=== PATIENT | female | born 1970 | race Caucasian/White ===

== ENCOUNTER 2016-11-09 16:37 | Emergency (ER) | payer MEDICAID ==
--- NOTE | 2016-11-09 17:18 | EDM.PDOC ---
[id number] Abdominal pain Time Seen by Provider: 11/09/16 17:00 Source of Information: Reports: Patient, RN notes reviewed History Limitations: Reports: No limitations - History of Present Illness INITIAL COMMENTS - FREE TEXT/NARRATIVE: 46 year old female, , presents to the ED with LUQ and RUQ abdominal pain since yesterday. The pain is more severe on the left when compared to the right. She rates the pain 6/10. She says the pain is constant and feels "gassy." She also feels bloated. She reports nausea but no vomiting. Last BM was today and "hard." She feels she could be constipated. She reports frequency with urination but no burning or urgency. She had flank pain last week but had no workup. She reports mild flank pain. She has generalized body aches and intermittent chills. She took Tylenol last evening for pain. She underwent IVF on 10/22/16 and has confirmed . She is 5 weeks gestation. She is seeing [facility] for her fertility treatment. She had a small amount of brown spotting when she wiped today. This seems to be improving. - Related Data Allergies/ADRs: Allergies Allergy/AdvReac Type Severity Reaction Status Date / Time Sulfa (Sulfonamide Allergy Airway Verified 11/09/16 16:48 Antibiotics) Tightness Home Meds: Home Meds Levothyroxine [Synthroid] 50 mcg PO DAILY 02/28/15 [History] Estradiol Patches. 11/09/16 [History] Pre-Luis Enrique Vitamins. 11/09/16 [History] Progesterone Injections. 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 Denies: Shortness of Breath, Cough Cardiovascular: Reports: No symptoms. Denies: Chest pain GI/Abdominal: Reports: Abdominal pain, Nausea. Denies: Constipation, Diarrhea, Vomiting : Reports: frequency. Denies: dysuria, flank pain, urgency ED EXAM - Physical Exam Exam: See Below Exam Limited By: No limitations General Appearance: alert, WD/WN, no apparent distress Respiratory/Chest: no respiratory distress, lungs clear, normal breath sounds Cardiovascular: regular rate, rhythm GI/Abdominal: normal bowel sounds, soft, no organomegaly, no distention, tender (Most significant tenderness to LUQ. Mild tenderness over lower abdomen). No: guarding, rigid, rebound Back Exam: normal inspection, full range of motion, CVA tenderness (L). No: CVA tenderness (R) Neurological: alert, oriented, normal cognition Course - Vital Signs Last Recorded V/S: Last Vital Signs Temp 97.7 F 11/09/16 16:49 Pulse Resp BP Pulse Ox - Orders/Labs/Meds Labs: Laboratory Tests 11/09/16 11/09/16 11/09/16 Range/Units 17:26 17:26 17:26 WBC 11.31 H (3.98-10.04) K/mm3 RBC 4.13 (3.98-5.22) M/mm3 Hgb 12.1 (11.2-15.7) gm/L Hct 36.5 (34.1-44.9) % MCV 88.4 (79.4-94.8) fl MCH 29.3 (25.6-32.2) pg MCHC 33.2 (32.2-35.5) g/dl RDW Std Deviation 47.9 H (36.4-46.3) fL Plt Count 239 (182-369) K/mm3 MPV 10.3 (9.4-12.3) fl Neut % (Auto) 76.1 H (34.0-71.1) % Lymph % (Auto) 15.3 L (19.3-51.7) % [place] % (Auto) 7.2 (4.7-12.5) % Eos % (Auto) 1.0 (0.7-5.8) Baso % (Auto) 0.2 (0.1-1.2) % Neut # (Auto) 8.62 H (1.56-6.13) K/mm3 Lymph # (Auto) 1.73 (1.18-3.74) K/mm3 [place] # (Auto) 0.81 H (0.24-0.36) K/mm3 Eos # (Auto) 0.11 (0.04-0.36) K/mm3 Baso # (Auto) 0.02 (0.01-0.08) K/mm3 Sodium 136 (136-145) mEq/L Potassium 3.7 (3.5-5.1) mEq/L Chloride 104 (98-107) mEq/L Carbon Dioxide 22 (21-32) mEq/L Anion Gap 13.7 (5-15) BUN 15 (7-18) mg/dL Creatinine 0.9 (0.55-1.02) mg/dL Est Cr Clr Drug Dosing 73.90 mL/min Estimated GFR (MDRD) > 60 (>60) mL/min BUN/Creatinine Ratio 16.7 (14-18) Glucose 146 H (74-106) mg/dL Calcium 8.3 L (8.5-10.1) mg/dL Total Bilirubin 0.1 L (0.2-1.0) mg/dL AST 12 L (15-37) U/L ALT 15 (14-59) U/L Alkaline Phosphatase 76 (46-116) U/L Total Protein 6.5 (6.4-8.2) g/dl Albumin 3.0 L (3.4-5.0) g/dl Globulin 3.5 gm/dL Albumin/Globulin Ratio 0.9 L (1-2) HCG, Quant 6034.0 mIU/mL Urine Color (Yellow) Urine Appearance (Clear) Urine pH (5.0-8.0) Ur Specific [place] (1.005-1.030) Urine Protein (Negative) Urine Glucose (UA) (Negative) Urine Ketones (Negative) Urine Occult Blood (Negative) Urine Nitrite (Negative) Urine Bilirubin (Negative) Urine Urobilinogen (0.2-1.0) Ur Leukocyte Esterase (Negative) Urine RBC (0-5) /hpf Urine WBC (0-5) /hpf Ur Epithelial Cells (0-5) /hpf Urine Bacteria (FEW) /hpf Urine Mucus (FEW) /hpf 11/09/16 Range/Units 18:07 WBC (3.98-10.04) K/mm3 RBC (3.98-5.22) M/mm3 Hgb (11.2-15.7) gm/L Hct (34.1-44.9) % MCV (79.4-94.8) fl MCH (25.6-32.2) pg MCHC (32.2-35.5) g/dl RDW Std Deviation (36.4-46.3) fL Plt Count (182-369) K/mm3 MPV (9.4-12.3) fl Neut % (Auto) (34.0-71.1) % Lymph % (Auto) (19.3-51.7) % [place] % (Auto) (4.7-12.5) % Eos % (Auto) (0.7-5.8) Baso % (Auto) (0.1-1.2) % Neut # (Auto) (1.56-6.13) K/mm3 Lymph # (Auto) (1.18-3.74) K/mm3 [place] # (Auto) (0.24-0.36) K/mm3 Eos # (Auto) (0.04-0.36) K/mm3 Baso # (Auto) (0.01-0.08) K/mm3 Sodium (136-145) mEq/L Potassium (3.5-5.1) mEq/L Chloride (98-107) mEq/L Carbon Dioxide (21-32) mEq/L Anion Gap (5-15) BUN (7-18) mg/dL Creatinine (0.55-1.02) mg/dL Est Cr Clr Drug Dosing mL/min Estimated GFR (MDRD) (>60) mL/min BUN/Creatinine Ratio (14-18) Glucose (74-106) mg/dL Calcium (8.5-10.1) mg/dL Total Bilirubin (0.2-1.0) mg/dL AST (15-37) U/L ALT (14-59) U/L Alkaline Phosphatase (46-116) U/L Total Protein (6.4-8.2) g/dl Albumin (3.4-5.0) g/dl Globulin gm/dL Albumin/Globulin Ratio (1-2) HCG, Quant mIU/mL Urine Color Yellow (Yellow) Urine Appearance Clear (Clear) Urine pH 6.0 (5.0-8.0) Ur Specific [place] 1.020 (1.005-1.030) Urine Protein Negative (Negative) Urine Glucose (UA) Negative (Negative) Urine Ketones Negative (Negative) Urine Occult Blood Trace-lysed H (Negative) Urine Nitrite Negative (Negative) Urine Bilirubin Negative (Negative) Urine Urobilinogen 0.2 (0.2-1.0) Ur Leukocyte Esterase Negative (Negative) Urine RBC 0-5 (0-5) /hpf Urine WBC 0-5 (0-5) /hpf Ur Epithelial Cells 0-5 (0-5) /hpf Urine Bacteria Few (FEW) /hpf Urine Mucus Few (FEW) /hpf Meds: Medications Discontinued Medications Generic Name Dose Route Start Last Admin Trade Name Pieter PRN Reason Stop Dose Admin Acetaminophen 975 mg 11/09/16 17:20 11/09/16 17:44 Tylenol PO 11/09/16 17:21 975 mg NOW ONE Administration - Re-Assessments/Exams Free Text/Narrative Re-Assessment/Exam: CBC reveals WBC of 11,000 and normal differentia. CMP is normal except for mildly elevated glucose. UA is negative for infection. Transvaginal ultrasound read by Dr. Charles, impression: 1. Intrauterine gestational sac with yolk sac. too early to see pole or heart activity 2. Nocomplicating process otherwise seen. If patient does not miscarry, recommend follow-up study in 11 days Acute causes of abdominal pain have been ruled out. Likely cause is constipation. Due to , x-rays were not ordered. Will treat her for constipation and have her f/u if not improved. Educated on return precautions. Discharge instructions as documented. Departure - Departure Time of Disposition: 19:43 Disposition: Home, Self-Care 01 Condition: good Clinical Impression: Abdominal pain of unknown etiology Instructions: Abdominal Pain, Adult, First Trimester of , [id number] , Abdominal Pain, Adult, [id number] Referrals: Astrid Negrete, [facility] [Primary Care Provider] - Forms: ED Department Discharge Additional Instructions: Use milk of magnesia for constipation Drink at least 80 oz of water per day Increase fiber in your diet with fruits, vegetables and whole grains Return to ER if your symptoms worsen Follow-up in clinic if not improced in 48 hours
[2016-11-09] MEDS ORDERED: Acetaminophen 325 MG Tab PO ONE (17:20)
--- NOTE | 2016-11-09 19:28 | US ---
First trimester obstetrical ultrasound: Multiple real-time images were obtained transvaginally. Dates: LMP: LMP given as 10/22/16, RODRICK 07/29/17, gestational age 2 weeks 4 days Current ultrasound: RODRICK 07/09/17, gestational age 5 weeks 3 days Single intrauterine gestation is seen. Small yolk sac is noted. too early to see pole or heart activity. Hypoechoic area is seen within the cervix which is felt to be incidental. Right and left ovaries are unremarkable. No free fluid is seen. Measurements: Gestational sac: 0.89 cm - 5 weeks 3 days Impression: 1. Intrauterine gestational sac with yolk sac. too early to see pole or heart activity. 2. No complicating process is otherwise seen. If patient does not miscarry, recommend follow-up study in 11 days. Diagnostic code #2
== END 2016-11-09 20:00 | disposition home or self-care (01) ==
LOC: JD.ED 16:37
DX: O99.89 Other specified diseases and conditions complicating pregnancy, childbirth and the puerperium (principal); R10.10 Upper abdominal pain, unspecified; Z88.2 Allergy status to sulfonamides; Z79.899 Other long term (current) drug therapy
CPT/HCPCS: 36415; 76817; 80053; 81001; 84702; 85025; 99284; A9270; 99282

== ENCOUNTER 2017-02-22 16:31 | Emergency (ER) | payer MEDICAID ==
[2017-02-22 16:50] VITALS: BP 143/83
--- NOTE | 2017-02-22 17:09 | EDM.PDOC ---
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 She is G7 L4 A2. Her director of family service center is Dr. Martin, whom she saw this past 02/17/2017 for an ultrasound, which demonstrated a SLIUP. The patient now presents with lower back pain this afternoon, along with vaginal pressure for the past approximately hour and 45 minutes, and rectal pressure for the past hour. She acknowledges that she is constipated. She denies dysuria, but states that she has been experiencing urinary frequency while . She has also experienced nausea during her entire . No recent fever. The patient denies vaginal bleeding. The patient's PCP is Yi Negrete. Bilateral Lower Back Pain Score (Numeric/FACES): 7 - Related Data Allergies Allergy/AdvReac Type Severity Reaction Status Date / Time Sulfa (Sulfonamide Allergy Airway Verified 02/22/17 16:45 Antibiotics) Tightness Home Meds: Home Meds Levothyroxine [Synthroid] 50 mcg PO DAILY 02/28/15 [History] Pre- Vitamins. 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 : 7 Para: 4 Endocrine/Metabolic History: Reports: Hypothyroidism - Past Surgical History HEENT Surgical History: Reports: Naso-Sinus Surgery (Rhinoplasty), Tonsillectomy Female Surgical History: Reports: Breast Implant, D&C (x 1), Kidney stone extraction, Other (See Below) (Cone biopsy.) Social & Family History - Tobacco Use Smoking Status *Q: Never Smoker Second Hand Smoke Exposure: No - Alcohol Use Alcohol Use History: No - Recreational Drug Use Recreational Drug Use: No - Living Situation & Occupation Living situation: Reports: , with Spouse, with Family (3 kids) Occupation: Unemployed ED ROS GENERAL - Review of Systems Review Of Systems: See Below Constitutional: Reports: No Symptoms HEENT: Reports: No Symptoms Respiratory: Reports: No Symptoms Cardiovascular: Reports: No Symptoms Endocrine: Reports: No Symptoms GI/Abdominal: Reports: No Symptoms : Reports: No Symptoms Musculoskeletal: Reports: No Symptoms Skin: Reports: No Symptoms Neurological: Reports: No Symptoms Psychiatric: Reports: No Symptoms Hematologic/Lymphatic: Reports: No Symptoms Immunologic: Reports: No Symptoms ED EXAM - Physical Exam Exam: See Below Exam Limited By: No Limitations General Appearance: Alert, WD/WN, No Apparent Distress Eye Exam: Bilateral Eye: Normal Inspection Ears: Normal External Exam, Hearing Grossly Normal Nose: Normal Inspection, No Blood Throat/Mouth: Normal Inspection, Normal Lips, Normal Voice, No Airway Compromise Head: Atraumatic, Normocephalic Neck: Normal Inspection, Full Range of Motion Respiratory/Chest: No Respiratory Distress, Lungs Clear, Normal Breath Sounds, No Accessory Muscle Use Cardiovascular: Normal Peripheral Pulses, Regular Rate, Rhythm, No Gallop, No JVD, No Murmur, No Rub GI/Abdominal Exam: Normal Bowel Sounds, Soft, Non-Tender, No Organomegaly, No Distention, No Abnormal Bruit, No Mass, Pelvis Stable Fundal Height In cm: 20 Rectal Exam: Deferred Heart Tones: Present Heart Tones per Min: 160 Back Exam: Normal Inspection, Full Range of Motion. No: CVA Tenderness (L), CVA Tenderness (R) Extremities: Normal Inspection, Normal Range of Motion, No Pedal Edema, Normal Capillary Refill Neurological: Alert, Oriented, Normal Cognition, Normal Gait, No Motor/Sensory Deficits Psychiatric: Normal Affect Skin Exam: Warm, Dry, Intact, Normal Color, No Rash Lymphatic: No Adenopathy Course - Vital Signs Last Recorded V/S: Last Vital Signs Temp 36.4 C 02/22/17 16:47 Pulse 66 02/22/17 16:47 Resp 20 02/22/17 16:47 BP 143/83 H 02/22/17 16:47 Pulse Ox 98 02/22/17 16:47 - Re-Assessments/Exams Free Text/Narrative Re-Assessment/Exam: 02/22/17 17:02 The patient states that she was expecting that Dr. Martin would be called in to the ED to check her cervix, and that an ultrasound would be done to check on the status of her fetus. Unfortunately, neither of those options are possible ( Dr. Bentley is senior international tax manager). I recommended to the patient that we check a urine sample to make sure that she does not have a UTI, however, the patient states that she does not feel comfortable having that done here in the ED, and that she would prefer to follow-up with Dr. Martin tomorrow. The patient's heart tones are 160 bpm. She has not had any vaginal bleeding. I reassured the patient that she is not having a miscarriage. Departure - Departure Time of Disposition: 17:04 Disposition: Home, Self-Care 01 Condition: Good Clinical Impression: Discomfort during - Discharge Information Referrals: Tiffanie Martin MD [Primary Care Provider] - Forms: ED Department Discharge Additional Instructions: You were seen in the emergency room for low back pain, along with vaginal and rectal pressure. A urinalysis to evaluate for a urinary tract infection was recommended, but declined. Your heart tones are 160 bpm, which is normal. Unfortunately, Dr. Martin is not available to come in to check your cervix, and an emergency ultrasound is is not indicated with your symptoms. The symptoms you described are MOST LIKELY due to round ligament pain, also known as discomfort of . We recommend you follow-up with Dr. Martin at the next available appointment. If any other problems, please do not hesitate to return to the ER.
== END 2017-02-22 17:20 | disposition home or self-care (01) ==
LOC: JD.ED 16:31
DX: O99.89 Other specified diseases and conditions complicating pregnancy, childbirth and the puerperium (principal); M54.5 Low back pain; Z88.2 Allergy status to sulfonamides; Z79.899 Other long term (current) drug therapy; E03.9 Hypothyroidism, unspecified
CPT/HCPCS: 99282; 99283

== ENCOUNTER 2017-07-03 07:25 | Inpatient (IN) | payer MEDICAID ==
[2017-07-03] MEDS ORDERED: Ampicillin 2 GM in Sodium Chloride 0.9% 100 ML IV ONE (08:08)
[2017-07-03] MEDS ORDERED: Sodium Chloride 0.9% 10 ML Syringe FLUSH PRN (08:08)
[2017-07-03] MEDS ORDERED: Oxytocin/Lactated Ringers 10 UNIT/1,000 ML BAG IV SCH ×2 (08:15)
[2017-07-03] MEDS: Lactated Ringers 1,000 ML IV SCH ×2 (08:40→13:16)
--- NOTE | 2017-07-03 09:14 | PCM.PREANE ---
Preanesthetic Assessment - Procedure Proposed Procedure: CLAUDIA - Anesthesia/Transfusion/Family Hx Anesthesia History: Prior Anesthesia Without Reaction Family History of Anesthesia Reaction: No Transfusion History: No Prior Transfusion(s) Intubation History: Unknown - Review of Systems General: No Symptoms Pulmonary: No Symptoms Cardiovascular: No Symptoms Gastrointestinal: Other (GERD) Neurological: Other (patient does have a sacral bulging disc that causes sciatic discomfort to the point where she has received spidural steroid injections. Patient denies any current problems with this at this time. ) Other: Reports: Diabetes (gestational ), Thyroid Problems (hypothyroidism ) - Physical Assessment NPO Status Date: 07/03/17 NPO Status Time: 08:30 Pulse: 65 Blood Pressure: 121/67 Vital Signs: Last Vital Signs Temp 36.2 C 07/03/17 08:09 Pulse 65 07/03/17 08:09 Resp BP 121/67 07/03/17 08:00 Pulse Ox Height: 1.68 m Weight: 102.058 kg ASA Class: 2 Mental Status: Alert & Oriented x3 Airway Class: Mallampati = 2 Dentition: Reports: Normal Dentition Thyro-Mental Finger Breadths: 3 Mouth Opening Finger Breadths: 3 ROM/Head Extension: Full Lungs: Clear to Auscultation, Normal Respiratory Effort Cardiovascular: Regular Rate, Regular Rhythm - Lab Values: Laboratory Last Values WBC 7.12 K/mm3 (3.98-10.04) 07/03/17 08:40 RBC 4.35 M/mm3 (3.98-5.22) 07/03/17 08:40 Hgb 13.0 gm/L (11.2-15.7) 07/03/17 08:40 Hct 38.1 % (34.1-44.9) 07/03/17 08:40 MCV 87.6 fl (79.4-94.8) 07/03/17 08:40 MCH 29.9 pg (25.6-32.2) 07/03/17 08:40 MCHC 34.1 g/dl (32.2-35.5) 07/03/17 08:40 RDW Std Deviation 49.8 fL (36.4-46.3) H 07/03/17 08:40 Plt Count 134 K/mm3 (182-369) L 07/03/17 08:40 MPV 11.7 fl (9.4-12.3) 07/03/17 08:40 - Allergies Allergies/Adverse Reactions: Allergies Allergy/AdvReac Type Severity Reaction Status Date / Time ipratropium [From Atrovent] Allergy Other Verified 07/03/17 07:33 Sulfa (Sulfonamide Allergy Airway Verified 06/19/17 14:33 Antibiotics) Tightness - Blood Blood Available: No - Anesthesia Plan Pre-Op Medication Ordered: None - Acknowledgements Anesthesia Type Planned: Epidural Pt an Appropriate Candidate for the Planned Anesthesia: Yes Alternatives and Risks of Anesthesia Discussed w Pt/Guardian: Yes Pt/Guardian Understands and Agrees with Anesthesia Plan: Yes PreAnesthesia Questionnaire - Past Health History Medical/Surgical History: Denies Medical/Surgical History Genitourinary History: Reports: Renal Calculus 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 Endocrine/Metabolic History: Reports: Hypothyroidism - Past Surgical History HEENT Surgical History: Reports: Naso-Sinus Surgery (Rhinoplasty), Tonsillectomy Female Surgical History: Reports: Breast Implant, D&C (x 1), Kidney stone extraction, Other (See Below) (Cone biopsy.) - SUBSTANCE USE Smoking Status *Q: Never Smoker Second Hand Smoke Exposure: No Recreational Drug Use History: No - HOME MEDS Home Medications: Home Meds Levothyroxine [Synthroid] 50 mcg PO DAILY 02/28/15 [History] Aspirin 81 mg PO BRK 02/22/17 [History] Ranitidine [Zantac] 150 mg PO DAILY 06/19/17 [History] Cyclobenzaprine [Flexeril] 5 - 10 mg PO TID PRN 07/03/17 [History] Fluconazole [Diflucan] 150 mg PO ASDIRECTED 07/03/17 [History] Insulin Aspart [NovoLOG] 2 - 8 units SUBCUT TIDMEALS 07/03/17 [History] Insulin Detemir [Levemir Flextouch] 27 units SUBCUT BEDTIME 07/03/17 [History] - CURRENT (IN HOUSE) MEDS Current Meds: Current Medications Ampicillin Sodium 1 gm/ Sodium (Chloride) 100 mls @ 200 mls/hr IV Q4H ISAEL Lactated Ringer's (Ringers, Lactated) 1,000 mls @ 100 mls/hr IV ASDIRECTED ISAEL Last Admin: 12/22/17 08:40 Dose: 100 mls/hr Oxytocin/Lactated Ringer's (Pitocin In Lr 10 Units/1,000 Ml) 10 unit in 1,000 mls @ 100 mls/hr IV .CONTINUOUS ISAEL Oxytocin/Lactated Ringer's (Pitocin In Lr 10 Units/1,000 Ml) 10 unit in 1,000 mls @ 12 mls/hr IV TITRATE ISAEL; 2 MUNITS/MIN PRN Reason: Protocol Last Admin: 07/03/17 08:41 Dose: 2 munits/min, 12 mls/hr Sodium Chloride (Saline Flush) 10 ml FLUSH ASDIRECTED PRN PRN Reason: Keep Vein Open Discontinued Medications Ampicillin Sodium 2 gm/ Sodium (Chloride) 100 mls @ 200 mls/hr IV ONETIME ONE Stop: 07/03/17 08:37 Last Admin: 07/03/17 08:41 Dose: 200 mls/hr
[2017-07-03] MEDS ORDERED: ePHEDrine 50 MG/ML SDV IVPUSH PRN (09:30)
[2017-07-03] MEDS ORDERED: diphenhydrAMINE 50 MG/ML SDV IVPUSH PRN (09:30)
[2017-07-03] MEDS ORDERED: fentaNYL 100 MCG/2 ML SDV EPIDUR PRN (09:30)
[2017-07-03] MEDS ORDERED: Ondansetron 4 MG/2 ML SDV IVPUSH PRN (09:30)
[2017-07-03] MEDS ORDERED: Bupivacaine/fentaNYL/NS 100 ML Bag EPIDUR SCH (09:30)
[2017-07-03] MEDS ORDERED: Ampicillin 1 GM in Sodium Chloride 0.9% 100 ML IV SCH (12:00)
[2017-07-03] MEDS ORDERED: Methylergonovine 0.2 MG/1 ML Amp IM ONE (15:00)
--- NOTE | 2017-07-03 15:21 | PCM.LDHP ---
L&D History of Present Illness - General Date of Service: 07/03/17 Admit Problem/Dx: Admission Diagnosis/Problem Admission Diagnosis/Problem care Source of Information: Patient - History of Present Illness Introduction:: 47 year old at 39w0 here for induction of labor for poorly controlled gestational diabetes and ama. PNC complicated by AMA (donor egg IVF), gbs positive, and insulin controlled gestational diabetes Pain Score: 8 - Related Data Allergies/Adverse Reactions: Allergies Allergy/AdvReac Type Severity Reaction Status Date / Time ipratropium [From Atrovent] Allergy Other Verified 07/03/17 07:33 Sulfa (Sulfonamide Allergy Airway Verified 06/19/17 14:33 Antibiotics) Tightness Home Medications: Home Meds Levothyroxine [Synthroid] 50 mcg PO DAILY 02/28/15 [History] Aspirin 81 mg PO BRK 02/22/17 [History] Ranitidine [Zantac] 150 mg PO DAILY 06/19/17 [History] Cyclobenzaprine [Flexeril] 5 - 10 mg PO TID PRN 07/03/17 [History] Fluconazole [Diflucan] 150 mg PO ASDIRECTED 07/03/17 [History] Insulin Aspart [NovoLOG] 2 - 8 units SUBCUT TIDMEALS 07/03/17 [History] Insulin Detemir [Levemir Flextouch] 27 units SUBCUT BEDTIME 07/03/17 [History] Past Medical History - Past Health History Medical/Surgical History: Denies Medical/Surgical History Genitourinary History: Reports: Renal Calculus D[employer]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: Reports: Spontaneous Musculoskeletal History: Reports: Other (See Below) Other Musculoskeletal History: plantar fascitis Psychiatric History: Reports: Anxiety Endocrine/Metabolic History: Reports: Hypothyroidism - Past Surgical History HEENT Surgical History: Reports: Naso-Sinus Surgery (Rhinoplasty), Tonsillectomy Female Surgical History: Reports: Breast Implant, D&C (x 1), Kidney stone extraction, Other (See Below) (Cone biopsy.) Social & Family History - Family History Cardiac: Reports: Hypertension Respiratory: Reports: COPD Psychiatric: Reports: ADHD, Anxiety Immunologic: Reports: HIV - Tobacco Use Smoking Status *Q: Never Smoker Second Hand Smoke Exposure: No - Caffeine Use Caffeine Use: Reports: None - Recreational Drug Use Recreational Drug Use: No - Living Situation & Occupation Living situation: Reports: , with Spouse, with Family (3 kids) Occupation: Unemployed H&P Review of Systems - Review of Systems: Review Of Systems: See Below General: Reports: No Symptoms HEENT: Reports: No Symptoms Pulmonary: Reports: No Symptoms Cardiovascular: Reports: No Symptoms Gastrointestinal: Reports: No Symptoms Genitourinary: Reports: No Symptoms Musculoskeletal: Reports: No Symptoms Skin: Reports: No Symptoms Psychiatric: Reports: No Symptoms Neurological: Reports: No Symptoms Hematologic/Lymphatic: Reports: No Symptoms Immunologic: Reports: No Symptoms L&D Exam - Exam Exam: See Below - Vital Signs Vital Signs: Last Vital Signs Temp 36.2 C 07/03/17 08:09 Pulse 53 L 07/03/17 10:23 Resp BP 146/76 H 07/03/17 10:23 Pulse Ox Weight: 102.058 kg - OB Specific Contraction Intensity: Mild Movement: Active Heart Tones per Min: 140 Heart Rate (FHR) Variability: Moderate (6-25 bmp) Presentation: Vertex - Robledo Score Robledo Score Cervix Position: Posterior Robledo Score Consistency: Soft Robledo Score Effacement: >80% Robledo Score Dilation: 3-4 cm Robledo Score 's Station: -3 Robledo Score Total: 7 - Exam General: Alert, Oriented HEENT: PERRLA, Conjunctiva Clear, EACs Clear, EOMI, Hearing Intact, Mucosa Moist & Bryce, Nares Patent, Normal Nasal Septum, Posterior Pharynx Clear, TMs Clear Neck: Supple, Trachea Midline Lungs: Clear to Auscultation, Normal Respiratory Effort Cardiovascular: Regular Rate, Regular Rhythm GI/Abdominal Exam: Normal Bowel Sounds, Soft, Non-Tender, No Organomegaly, No Distention, No Abnormal Bruit, No Mass, Pelvis Stable Genitourinary: Normal external exam, Normal bimanual exam, Normal speculum exam Back Exam: Normal Inspection, Full Range of Motion Extremities: Normal Inspection, Normal Range of Motion, Non-Tender, No Pedal Edema, Normal Capillary Refill Skin: Warm, Dry, Intact Neurological: Cranial Nerves Intact, Reflexes Equal Bilateral Psychiatric: Alert, Normal Affect, Normal Mood - Patient Data Lab Results Last 24 hrs: Laboratory Results - last 24 hr 07/03/17 07/03/17 07/03/17 Range/Units 08:40 08:40 09:10 WBC 7.12 (3.98-10.04) K/mm3 RBC 4.35 (3.98-5.22) M/mm3 Hgb 13.0 (11.2-15.7) gm/L Hct 38.1 (34.1-44.9) % MCV 87.6 (79.4-94.8) fl MCH 29.9 (25.6-32.2) pg MCHC 34.1 (32.2-35.5) g/dl RDW Std Deviation 49.8 H (36.4-46.3) fL Plt Count 134 L (182-369) K/mm3 MPV 11.7 (9.4-12.3) fl POC Glucose 75 (70-105) mg/dL Blood Type A POSITIVE Gel Antibody Screen Negative 07/03/17 07/03/17 07/03/17 Range/Units 10:55 13:00 14:53 WBC (3.98-10.04) K/mm3 RBC (3.98-5.22) M/mm3 Hgb (11.2-15.7) gm/L Hct (34.1-44.9) % MCV (79.4-94.8) fl MCH (25.6-32.2) pg MCHC (32.2-35.5) g/dl RDW Std Deviation (36.4-46.3) fL Plt Count (182-369) K/mm3 MPV (9.4-12.3) fl POC Glucose 59 L 122 H 83 (70-105) mg/dL Blood Type Gel Antibody Screen Result Diagrams: 07/03/17 08:40 Problem List Initiated/Reviewed/Updated: Yes Orders Last 24hrs: Active Orders 24 hr Category Date Time Status Patient Status Manage Transfer [TRANSFER] Routine ADT 07/03/17 15:14 Ordered Activity as Tolerated [RC] PFP Care 07/03/17 08:09 Active Blood Glucose Check, Bedside [RC] Q2H Care 07/03/17 09:06 Active Communication Order [RC] ASDIRECTED Care 07/03/17 08:09 Active Heart Tones [RC] ASDIRECTED Care 07/03/17 08:09 Active Notify Provider [RC] PFP Care 07/03/17 08:09 Active Notify Provider [RC] PRN Care 07/03/17 08:09 Active Peripheral IV Care [RC] Q4HR Care 07/03/17 08:09 Active Vital Signs [RC] PER UNIT ROUTINE Care 07/03/17 08:09 Active Regular Diet [DIET] Diet 07/03/17 Lunch Active PATIENT RETYPE [BBK] Stat Lab 07/03/17 08:40 Results TYPE AND SCREEN [BBK] Stat Lab 07/03/17 08:40 Results Ampicillin 1 gm Med 07/03/17 12:00 Active Sodium Chloride 0.9% [Normal Saline] 100 ml IV Q4H Bupivacaine/fentaNYL/NS [fentaNYL/Bupivacaine/NS 2 MCG- Med 07/03/17 09:30 Active 0.125% 100 ML] 100 ml EPIDUR ASDIRECTED Lactated Ringers [Ringers, Lactated] 1,000 ml Med 07/03/17 08:15 Active IV ASDIRECTED Ondansetron [Zofran] Med 07/03/17 09:30 Active 4 mg IVPUSH ONETIME PRN Oxytocin/Lactated Ringers [Pitocin in LR 10 Units/1,000 Med 07/03/17 08:15 Active ML] 10 unit in 1,000 ml IV .CONTINUOUS Oxytocin/Lactated Ringers [Pitocin in LR 10 Units/1,000 Med 07/03/17 08:15 Active ML] 10 unit in 1,000 ml IV TITRATE Sodium Chloride 0.9% [Saline Flush] Med 07/03/17 08:08 Active 10 ml FLUSH ASDIRECTED PRN diphenhydrAMINE [Benadryl] Med 07/03/17 09:30 Active 25 mg IVPUSH Q6H PRN ePHEDrine [ePHEDrine Sulfate] Med 07/03/17 09:30 Active 5 mg IVPUSH ASDIRECTED PRN fentaNYL [Sublimaze] Med 07/03/17 09:30 Active 100 mcg EPIDUR Q3H PRN Electronic Heart Tones Ext w TOCO [WOMSER] Oth 07/03/17 08:09 Ordered Routine Electronic Heart Tones Internal [WOMSER] Per Unit Oth 07/03/17 08:09 Ordered Routine Peripheral IV Insertion Adult [OM.PC] Routine Oth 07/03/17 08:09 Ordered Resuscitation Status Routine Resus Stat 07/03/17 08:08 Ordered Medication Orders Diphenhydramine HCl (Benadryl) 25 mg IVPUSH Q6H PRN PRN Reason: Pruritis Ephedrine Sulfate (Ephedrine Sulfate) 5 mg IVPUSH ASDIRECTED PRN PRN Reason: Hypotension Fentanyl (Sublimaze) 100 mcg EPIDUR Q3H PRN PRN Reason: Pain Last Admin: 07/03/17 12:40 Dose: 100 mcg Fentanyl/Bupivacaine HCl (Fentanyl/Bupivacaine/Ns 2 Mcg-0.125% 100 Ml) 100 ml EPIDUR ASDIRECTED ISAEL Last Admin: 07/03/17 12:41 Dose: 100 ml Ampicillin Sodium 1 gm/ Sodium (Chloride) 100 mls @ 200 mls/hr IV Q4H ISAEL Last Admin: 07/03/17 12:09 Dose: 200 mls/hr Lactated Ringer's (Ringers, Lactated) 1,000 mls @ 100 mls/hr IV ASDIRECTED ISAEL Last Admin: 07/03/17 13:16 Dose: 100 mls/hr Infusion: 07/03/17 12:50 Dose: 999 mls/hr Admin: 07/03/17 08:40 Dose: 100 mls/hr Oxytocin/Lactated Ringer's (Pitocin In Lr 10 Units/1,000 Ml) 10 unit in 1,000 mls @ 100 mls/hr IV .CONTINUOUS ISAEL Oxytocin/Lactated Ringer's (Pitocin In Lr 10 Units/1,000 Ml) 10 unit in 1,000 mls @ 12 mls/hr IV TITRATE ISAEL; 2 MUNITS/MIN PRN Reason: Protocol Last Titration: 07/03/17 13:21 Dose: 10 munits/min, 60 mls/hr Titration: 07/03/17 11:02 Dose: 8 munits/min, 48 mls/hr Titration: 07/03/17 10:27 Dose: 6 munits/min, 36 mls/hr Titration: 07/03/17 09:52 Dose: 4 munits/min, 24 mls/hr Admin: 07/03/17 08:41 Dose: 2 munits/min, 12 mls/hr Ondansetron HCl (Zofran) 4 mg IVPUSH ONETIME PRN PRN Reason: Nausea/Vomiting Sodium Chloride (Saline Flush) 10 ml FLUSH ASDIRECTED PRN PRN Reason: Keep Vein Open Assessment/Plan Comment:: Admit Pitocin AROM later today Breakfast - patient took morning levimir. Sugars q2 and insulin gtt if needed but suspect with some food intake will be controlled with this
[2017-07-03] MEDS ORDERED: Benzocaine/Menthol 20%-0.5% Spray 56 GM Canister TOP PRN (15:58)
[2017-07-03] MEDS ORDERED: Lanolin 100% Cream 7 GM Tube TOP PRN (15:58)
[2017-07-03] MEDS ORDERED: Ibuprofen 600 MG Tab PO PRN (15:58)
[2017-07-03] MEDS ORDERED: Methylergonovine 0.2 MG/1 ML Amp IM PRN (15:58)
[2017-07-03] MEDS ORDERED: Witch Hazel Medicated Pads 100/Jar TOP PRN (15:58)
[2017-07-03] MEDS ORDERED: Docusate Sodium 100 MG Cap PO PRN (21:30)
[2017-07-03] MEDS ORDERED: Bupivacaine 0.25% 10 ML SDV ONE (22:22)
[2017-07-04 08:40] VITALS: BP 128/77
--- NOTE | 2017-07-04 11:01 | PCM.SN ---
- Free Text/Narrative Note: Post Progress Note PPD # 1 Subjective: Doing well overall. Ambulating without difficulty. Lochia minimal. Voiding without difficulty. Tolerating regular diet. Pain controlled with oral medications. Breast and bottle feeding with minimal difficulty. Objective: Vitals: Vital Signs - 24 hr 07/03/17 07/03/17 07/03/17 11:53 12:09 12:32 Temperature Pulse, 56 L 64 72 Peripheral Respiratory Rate Blood Pressure 143/78 H O2 Sat by Pulse 99 Oximetry 07/03/17 07/03/17 07/03/17 13:01 13:31 14:01 Temperature Pulse, 67 67 64 Peripheral Respiratory Rate Blood Pressure 130/54 L 142/70 H 136/72 O2 Sat by Pulse Oximetry 07/03/17 07/03/17 07/03/17 14:31 15:00 15:30 Temperature Pulse, 66 68 117 H Peripheral Respiratory Rate Blood Pressure 130/78 130/86 125/97 H O2 Sat by Pulse Oximetry 07/03/17 07/03/17 07/03/17 16:01 16:31 17:01 Temperature Pulse, 75 67 66 Peripheral Respiratory Rate Blood Pressure 129/106 H 133/80 132/64 O2 Sat by Pulse Oximetry 07/03/17 07/03/17 07/03/17 17:31 18:01 18:31 Temperature Pulse, 77 72 70 Peripheral Respiratory Rate Blood Pressure 133/57 L 131/58 L 135/77 O2 Sat by Pulse Oximetry 07/03/17 07/04/17 07/04/17 20:24 03:42 08:17 Temperature 37.4 C 36.4 C 36.4 C Pulse, 69 63 63 Peripheral Respiratory 14 14 Rate Blood Pressure 119/92 H 132/64 128/77 O2 Sat by Pulse 98 98 96 Oximetry Physical Exam General: Alert and oriented, no acute distress Lungs: Clear to auscultation bilaterally Heart: Regular rate and rhythm Abdomen: Soft, minimal appropriate tenderness, non-distended, fundus midline, nontender, and below the umbilicus Extremities: No edema Laboratory Results - last 24 hr 07/03/17 07/03/17 07/03/17 Range/Units 13:00 14:53 19:16 POC Glucose 122 H 83 129 H (70-105) mg/dL 07/04/17 Range/Units 06:14 POC Glucose 82 (70-105) mg/dL ASSESSMENT: 47-year-old female G 7 P 5025 s/p normal vaginal delivery PPD #1, complicated by insulin-controlled gestational diabetes, advanced maternal age, donor egg , GBS positive PLAN: Doing well Breast and bottle feeding with minimal difficulty. Assist as needed Lochia minimal. Continue to monitor for appropriate lochia. Continue routine care Patient previously was insulin controlled gestational diabetic. Her sugars have been good while in the hospital after delivery without use of any insulin. Patient should continue to check blood sugars after discharge. Patient to have a 2 hour glucose tolerance test at her 6 week appointment. Patient is GBS positive and received 2 doses of ampicillin prior to delivery. Anticipate discharge home today Brian Moreira MD 11:03 AM 07/04/2017
--- NOTE | 2017-07-04 11:17 | PCM.DCSUM1 ---
Discharge Summary - Hospital Course Free Text/Narrative:: 47-year-old 0-4 at 39 weeks gestational age admitted for induction of labor. care was with Dr. Martin complicated by advanced maternal age with egg donor, insulin controlled gestational diabetes, GBS positive and hypothyroidism. She had an uncomplicated delivery on 07/03/2017 of a male weighing 3283 g (7 lbs. 7 oz.) Apgars were 8 and 9. There were no significant complications with the delivery. HPI Initial Comments: 47-year-old 0-4 at 39 weeks gestational age admitted for induction of labor. care was with Dr. Martin complicated by advanced maternal age with egg donor, insulin controlled gestational diabetes, GBS positive and hypothyroidism. She had an uncomplicated delivery on 07/03/2017 of a male infant weighing 3283 g (7 lbs. 7 oz.) Apgars were 8 and 9. There were no significant complications with the delivery. Brief History: 47-year-old 0-4 at 39 weeks gestational age admitted for induction of labor. care was with Dr. Martin complicated by advanced maternal age with egg donor, insulin controlled gestational diabetes, GBS positive and hypothyroidism. She had an uncomplicated delivery on 07/03/2017 of a male weighing 3283 g (7 lbs. 7 oz.) Apgars were 8 and 9. There were no significant complications with the delivery. - Discharge Data Discharge Date: 07/04/17 Discharge Disposition: Home, Self-Care 01 Condition: Good - Discharge Diagnosis/Problem(s) (1) (normal spontaneous vaginal delivery) SNOMED Code(s): 86911389 ICD Code: O80 - ENCOUNTER FOR FULL-TERM UNCOMPLICATED DELIVERY Status: Acute Current Visit: Yes (2) 39 weeks gestation of SNOMED Code(s): 17855566 ICD Code: Z3A.39 - 39 WEEKS GESTATION OF Status: Acute Current Visit: Yes (3) AMA (advanced maternal age) multigravida 35+ SNOMED Code(s): 521284914 ICD Code: O09.529 - SUPERVISION OF ELDERLY MULTIGRAVIDA, UNSPECIFIED TRIMESTER Status: Acute Current Visit: Yes (4) Egg donor SNOMED Code(s): 471379990 ICD Code: Z52.819 - EGG (OOCYTE) DONOR, UNSPECIFIED Status: Acute Current Visit: Yes (5) GBS (group B Streptococcus carrier), +RV culture, currently SNOMED Code(s): 3830040517004, 2621138923420 ICD Code: O99.820 - STREPTOCOCCUS B CARRIER STATE COMPLICATING Status: Acute Current Visit: Yes (6) Gestational diabetes SNOMED Code(s): 16750116 ICD Code: O24.419 - GESTATIONAL DIABETES MELLITUS IN , UNSP CONTROL Status: Acute Current Visit: Yes Qualifiers: Gestational diabetes mellitus control: insulin-controlled (7) Hypothyroidism affecting SNOMED Code(s): 834911217 ICD Code: O99.280 - ENDO, NUTRITIONAL AND METAB DISEASES COMP PREG, UNSP TRI ; E03.9 - HYPOTHYROIDISM, UNSPECIFIED Status: Acute Current Visit: Yes - Patient Summary/Data Complications: None Consults: None Hospital Course: 47-year-old 0-4 at 39 weeks gestational age admitted for induction of labor. care was with Dr. Martin complicated by advanced maternal age with egg donor, insulin controlled gestational diabetes, GBS positive and hypothyroidism. She had an uncomplicated delivery on 07/03/2017 of a male weighing 3283 g (7 lbs. 7 oz.) Apgars were 8 and 9. There were no significant complications with the delivery. On day #1 she was meeting all milestones. She was ambulating without difficulty. She was tolerating regular diet without any nausea. She was voiding without difficulty. She was breast and bottlefeeding without difficulty. She received 2 doses of ampicillin prior to delivery for GBS positive status. She had minimal lochia. She desired to be discharged home in the afternoon of day #1. She will follow up with Dr. Lanza or Dr. Martin in 6 weeks or earlier as needed. She'll continue to monitor her blood glucose levels at home and bring these values with her to her appointment. She should have a 2 hour glucose tolerance test at her 6 week visit to check for possible type 2 diabetes. - Patient Instructions Diet: Regular Diet as Tolerated Activity: As Tolerated Activity, Other: Nothing in the vagina for 6 weeks Driving: May Drive Today Showering/Bathing: May Shower, No Tub Bathing/Swimming (For 6 weeks) Notify Provider of: Fever, Increased Pain, Swelling and Redness, Drainage, Nausea and/or Vomiting Other/Special Instructions: Patient to have 2 hour glucose tolerance test done at approximate 6 weeks . - Discharge Plan Home Medications: Home Meds Levothyroxine [Synthroid] 50 mcg PO DAILY 02/28/15 [History] Aspirin 81 mg PO BRK 02/22/17 [History] Ranitidine [Zantac] 150 mg PO DAILY 06/19/17 [History] Cyclobenzaprine [Flexeril] 5 - 10 mg PO TID PRN 07/03/17 [History] Fluconazole [Diflucan] 150 mg PO ASDIRECTED 07/03/17 [History] Docusate Sodium [Colace] 100 mg PO BID PRN cap 07/04/17 [Rx] Ibuprofen [IJD: Ibuprofen] 600 mg PO Q6H PRN tablet 07/04/17 [Rx] Lanolin [Lansinoh HPA] 1 applic TOP ASDIRECTED PRN tube 07/04/17 [Rx] Witch Christiana [Tucks] 1 pad TOP ASDIRECTED PRN pad 07/04/17 [Rx] Patient Handouts: Home Care Instructions for Mom, Vaginal Delivery, Care After , How to Take a Sitz Bath, Gestational Diabetes Mellitus Referrals: Gerda Lanza MD [Primary Care Provider] - (Follow-up in 6 weeks for your routine visit.) - Discharge Summary/Plan Comment DC Time >30 min.: No - Patient Data Vitals - Most Recent: Last Vital Signs Temp 36.4 C 07/04/17 08:17 Pulse 63 07/04/17 08:17 Resp 14 07/04/17 03:42 BP 128/77 07/04/17 08:17 Pulse Ox 96 07/04/17 08:17 Weight - Most Recent: 102.058 kg I&O - Last 24 hours: Intake & Output 07/03/17 07/04/17 07/04/17 22:59 06:59 14:59 Intake Total 480 Balance 480 Lab Results - Last 24 hrs: Laboratory Results - last 24 hr 07/03/17 07/03/17 07/03/17 Range/Units 13:00 14:53 19:16 POC Glucose 122 H 83 129 H (70-105) mg/dL 07/04/17 Range/Units 06:14 POC Glucose 82 (70-105) mg/dL Med Orders - Current: Current Medications Benzocaine/Menthol (Dermoplast Pain Relief [place]) 0 gm TOP ASDIRECTED PRN PRN Reason: Perineal Comfort Measure Last Admin: 07/04/17 09:40 Dose: 1 applic Docusate Sodium (Colace) 100 mg PO BID PRN PRN Reason: Constipation Emollient Ointment (Lansinoh Hpa) 0 gm TOP ASDIRECTED PRN PRN Reason: Sore Nipples Ibuprofen (Motrin) 600 mg PO Q6H PRN PRN Reason: Mild pain or fever Last Admin: 07/03/17 23:49 Dose: 600 mg Methylergonovine Maleate (Methergine) 0.2 mg IM ONETIME PRN PRN Reason: Excessive Vaginal Bleeding Witch Christiana (Tucks) 1 pad TOP ASDIRECTED PRN PRN Reason: Hemorrhoid pain Last Admin: 07/04/17 09:40 Dose: 1 pad Discontinued Medications Diphenhydramine HCl (Benadryl) 25 mg IVPUSH Q6H PRN PRN Reason: Pruritis Ephedrine Sulfate (Ephedrine Sulfate) 5 mg IVPUSH ASDIRECTED PRN PRN Reason: Hypotension Fentanyl (Sublimaze) 100 mcg EPIDUR Q3H PRN PRN Reason: Pain Last Admin: 07/03/17 12:40 Dose: 100 mcg Fentanyl/Bupivacaine HCl (Fentanyl/Bupivacaine/Ns 2 Mcg-0.125% 100 Ml) 100 ml EPIDUR ASDIRECTED [facility] Last Admin: 07/03/17 12:41 Dose: 100 ml Ampicillin Sodium 2 gm/ Sodium (Chloride) 100 mls @ 200 mls/hr IV ONETIME ONE Stop: 07/03/17 08:37 Last Admin: 07/03/17 08:41 Dose: 200 mls/hr Ampicillin Sodium 1 gm/ Sodium (Chloride) 100 mls @ 200 mls/hr IV Q4H [facility] Last Admin: 07/03/17 12:09 Dose: 200 mls/hr Lactated Ringer's (Ringers, Lactated) 1,000 mls @ 100 mls/hr IV ASDIRECTED [facility] Last Admin: 07/03/17 13:16 Dose: 100 mls/hr Oxytocin/Lactated Ringer's (Pitocin In Lr 10 Units/1,000 Ml) 10 unit in 1,000 mls @ 100 mls/hr IV .CONTINUOUS ISAEL Oxytocin/Lactated Ringer's (Pitocin In Lr 10 Units/1,000 Ml) 10 unit in 1,000 mls @ 12 mls/hr IV TITRATE ISAEL; 2 MUNITS/MIN PRN Reason: Protocol Last Titration: 07/03/17 13:21 Dose: 10 munits/min, 60 mls/hr Methylergonovine Maleate (Methergine) 0.2 mg IM ONETIME ONE Stop: 07/03/17 15:01 Last Admin: 07/03/17 15:56 Dose: 0.2 mg Ondansetron HCl (Zofran) 4 mg IVPUSH ONETIME PRN PRN Reason: Nausea/Vomiting Sodium Chloride (Saline Flush) 10 ml FLUSH ASDIRECTED PRN PRN Reason: Keep Vein Open *Q Meaningful Use (DIS) - VTE *Q VTE Criteria *Q: - Stroke *Q Stroke Criteria *Q: - AMI *Q AMI Criteria *Q:
--- NOTE | 2017-07-06 08:15 | PCM48HPAN ---
Post Anesthesia Note - EVALUATION WITHIN 48HRS OF ANESTHETIC Vital Signs in Normal Range: Yes Patient Participated in Evaluation: Yes Respiratory Function Stable: Yes Airway Patent: Yes Cardiovascular Function Stable: Yes Hydration Status Stable: Yes Pain Control Satisfactory: Yes Nausea and Vomiting Control Satisfactory: Yes Mental Status Recovered: Yes
== END 2017-07-04 16:27 | disposition home or self-care (01) | DRG 775 ==
LOC: JD.OB 07:25 → OBSVTOIN 14:57 → JD.OB 14:57
PROVIDERS: ADMIT Obstetrics & Gynecology; ATTEND Obstetrics & Gynecology
PROC: 10E0XZZ Delivery of Products of Conception, External Approach (ICD-10-PCS; principal; 2017-07-03)
PROC: 3E0P3VZ Introduction of Hormone into Female Reproductive, Percutaneous Approach (ICD-10-PCS; 2017-07-03)
PROC: 10907ZC Drainage of Amniotic Fluid, Therapeutic from Products of Conception, Via Natural or Artificial Opening (ICD-10-PCS; 2017-07-03)
PROC: 0HQ9XZZ Repair Perineum Skin, External Approach (ICD-10-PCS; 2017-07-03)
PROC: 00HU33Z Insertion of Infusion Device into Spinal Canal, Percutaneous Approach (ICD-10-PCS; 2017-07-03)
PROC: 3E0R3BZ Introduction of Anesthetic Agent into Spinal Canal, Percutaneous Approach (ICD-10-PCS; 2017-07-03)
DX: O24.424 Gestational diabetes mellitus in childbirth, insulin controlled (principal); Z37.0 Single live birth; Z3A.39 39 weeks gestation of pregnancy; O99.824 Streptococcus B carrier state complicating childbirth; O99.284 Endocrine, nutritional and metabolic diseases complicating childbirth; E03.9 Hypothyroidism, unspecified; O70.0 First degree perineal laceration during delivery; O69.2XX0 Labor and delivery complicated by other cord entanglement, with compression, not applicable or unspecified
CPT/HCPCS: 36415; 51701; 59300; 59409; 82962; 85027; 86850; 86900; 86901; A9270-GY; J0290; J2210; J2590; J3010; J7030; J7120

== ENCOUNTER 2019-06-16 13:29 | Inpatient (IN) | payer MEDICAID ==
[~2019-06-16 13:29] MED LIST: Bupivacaine 0.25% 10 ML SDV ONE
--- NOTE | 2019-06-16 16:58 | PCM.LDHP ---
L&D History of Present Illness - General Date of Service: 06/16/19 Admit Problem/Dx: Patient Status Order with Admit Dx/Problem 06/16/19 16:42 Patient Status [ADT] Routine Admission Diagnosis/Problem Admission Diagnosis/Problem Gestational hypertension Source of Information: Patient History Limitations: Reports: No Limitations - History of Present Illness Introduction:: Patient is a 49 y/o at 38 5/7 wks who presents from clinic for further BP's and lab work. Patient has complicated by ALLYSON KATHY2, and today had findings of mild range BP with NST. Had one other mild range BP in clinic earlier this week. Feeling well. Good FM. 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: , Spontaneous : 8 Para: 5 LMP (Approximate): Psychiatric History: Reports: Anxiety, Depression Endocrine/Metabolic History: Reports: Diabetes, Gestational, Hypothyroidism - Past Surgical History HEENT Surgical History: Reports: Naso-Sinus Surgery (Rhinoplasty), Tonsillectomy GI Surgical History: Reports: EGD Female Surgical History: Reports: Breast Implant, D&C (x 1), Kidney stone extraction, LEEP, Other (See Below) (Hysteroscopy) Social & Family History - Family History Cardiac: Reports: Hypertension Respiratory: Reports: COPD Psychiatric: Reports: ADHD, Anxiety Immunologic: Reports: HIV - Tobacco Use Smoking Status *Q: Never Smoker - Caffeine Use Caffeine Use: Reports: None - Alcohol Use Alcohol Use History: No - Recreational Drug Use Recreational Drug Use: No - Living Situation & Occupation Living situation: Reports: , with Spouse, with Family (3 kids) Occupation: Unemployed H&P Review of Systems - Review of Systems: Review Of Systems: See Below General: Reports: No Symptoms Pulmonary: Reports: No Symptoms Cardiovascular: Reports: No Symptoms Gastrointestinal: Reports: No Symptoms Genitourinary: Reports: No Symptoms Musculoskeletal: Reports: No Symptoms Psychiatric: Reports: No Symptoms Neurological: Reports: No Symptoms L&D Exam - Exam Exam: See Below - Vital Signs Vital Signs: Last Vital Signs Temp 36.3 C 06/16/19 13:44 Pulse 62 06/16/19 13:44 Resp 16 06/16/19 13:44 BP 140/80 06/16/19 13:44 Pulse Ox 98 06/16/19 13:44 Weight: 101.378 kg - OB Specific Contraction Intensity: Irritability Movement: Active Heart Tones: Present Heart Tones per Min: 120 Heart Rate (FHR) Variability: Moderate (6-25 bmp) Presentation: Vertex - Exam General: Alert, Oriented, Cooperative Lungs: Clear to Auscultation, Normal Respiratory Effort Cardiovascular: Regular Rate, Regular Rhythm GI/Abdominal Exam: Soft, Non-Tender Extremities: Normal Inspection Skin: Warm, Dry, Intact - Patient Data Lab Results Last 24 hrs: Laboratory Results - last 24 hr 06/16/19 06/16/19 06/16/19 Range/Units 12:15 13:45 13:56 WBC 7.12 (3.98-10.04) K/mm3 RBC 4.55 (3.98-5.22) M/mm3 Hgb 13.9 (11.2-15.7) gm/dl Hct 39.6 (34.1-44.9) % MCV 87.0 (79.4-94.8) fl MCH 30.5 (25.6-32.2) pg MCHC 35.1 (32.2-35.5) g/dl RDW Std Deviation 50.1 H (36.4-46.3) fL Plt Count 161 L (182-369) K/mm3 MPV 11.9 (9.4-12.3) fl Neut % (Auto) 72.5 H (34.0-71.1) % Lymph % (Auto) 19.9 (19.3-51.7) % [place] % (Auto) 6.9 (4.7-12.5) % Eos % (Auto) 0.4 L (0.7-5.8) Baso % (Auto) 0.3 (0.1-1.2) % Neut # (Auto) 5.16 (1.56-6.13) K/mm3 Lymph # (Auto) 1.42 (1.18-3.74) K/mm3 [place] # (Auto) 0.49 H (0.24-0.36) K/mm3 Eos # (Auto) 0.03 L (0.04-0.36) K/mm3 Baso # (Auto) 0.02 (0.01-0.08) K/mm3 BUN 19 H (7-18) mg/dL Creatinine 1.0 (0.55-1.02) mg/dL Est Cr Clr Drug Dosing 64.41 mL/min Estimated GFR (MDRD) 59 (>60) mL/min POC Glucose (70-105) mg/dL Uric Acid 6.5 H (2.6-6.0) mg/dL AST 23 (15-37) U/L ALT 24 (14-59) U/L Lactate Dehydrogenase 281 H (81-234) U/L Ur Random Creatinine 356.3 H (30.0-125.0) mg/dL U Random Total Protein 44.9 H (0.0-11.8) mg/dL Protein/Creatinin Ratio 126.0 (0-149) mg/g Blood Type Gel Antibody Screen 06/16/19 06/16/19 Range/Units 13:56 14:10 WBC (3.98-10.04) K/mm3 RBC (3.98-5.22) M/mm3 Hgb (11.2-15.7) gm/dl Hct (34.1-44.9) % MCV (79.4-94.8) fl MCH (25.6-32.2) pg MCHC (32.2-35.5) g/dl RDW Std Deviation (36.4-46.3) fL Plt Count (182-369) K/mm3 MPV (9.4-12.3) fl Neut % (Auto) (34.0-71.1) % Lymph % (Auto) (19.3-51.7) % [place] % (Auto) (4.7-12.5) % Eos % (Auto) (0.7-5.8) Baso % (Auto) (0.1-1.2) % Neut # (Auto) (1.56-6.13) K/mm3 Lymph # (Auto) (1.18-3.74) K/mm3 [place] # (Auto) (0.24-0.36) K/mm3 Eos # (Auto) (0.04-0.36) K/mm3 Baso # (Auto) (0.01-0.08) K/mm3 BUN (7-18) mg/dL Creatinine (0.55-1.02) mg/dL Est Cr Clr Drug Dosing mL/min Estimated GFR (MDRD) (>60) mL/min POC Glucose 102 (70-105) mg/dL Uric Acid (2.6-6.0) mg/dL AST (15-37) U/L ALT (14-59) U/L Lactate Dehydrogenase (81-234) U/L Ur Random Creatinine (30.0-125.0) mg/dL U Random Total Protein (0.0-11.8) mg/dL Protein/Creatinin Ratio (0-149) mg/g Blood Type A POSITIVE Gel Antibody Screen Negative Result Diagrams: 06/16/19 12:15 06/16/19 13:56 - Problem List (1) 38 weeks gestation of SNOMED Code(s): 94881381 ICD Code: Z3A.38 - 38 WEEKS GESTATION OF Status: Acute Current Visit: Yes (2) AMA (advanced maternal age) multigravida 35+ SNOMED Code(s): 604257452 ICD Code: O09.529 - SUPERVISION OF ELDERLY MULTIGRAVIDA, UNSPECIFIED TRIMESTER Status: Acute Current Visit: No (3) Gestational diabetes SNOMED Code(s): 38221487 ICD Code: O24.419 - GESTATIONAL DIABETES MELLITUS IN , UNSP CONTROL Status: Acute Current Visit: No Qualifiers: Gestational diabetes mellitus control: insulin-controlled Trimester: third trimester Qualified Code(s): O24.414 - Gestational diabetes mellitus in , insulin controlled (4) Gestational hypertension SNOMED Code(s): 551166359 ICD Code: O13.9 - GESTATIONAL HTN W/O SIGNIFICANT PROTEINURIA, UNSP TRIMESTER Status: Acute Current Visit: Yes Qualifiers: Trimester: third trimester Qualified Code(s): O13.3 - Gestational [ -induced] hypertension without significant proteinuria, third trimester Problem List Initiated/Reviewed/Updated: Yes Orders Last 24hrs: Active Orders 24 hr Category Date Time Status Patient Status [ADT] Routine ADT 06/16/19 16:42 Ordered Activity as Tolerated [RC] PFP Care 06/16/19 16:43 Ordered Blood Glucose Check, Bedside [RC] ASDIRECTED Care 06/16/19 16:52 Ordered Non Stress Test [RC] PER UNIT ROUTINE Care 06/16/19 13:44 Active Non Stress Test [RC] Q4HR Care 06/16/19 16:43 Ordered Notify Provider Vital Signs [RC] PRN Care 06/16/19 16:43 Ordered Peripheral IV Care [RC] . DIRECTED Care 06/16/19 16:44 Ordered Up ad Sylvia [RC] ASDIRECTED Care 06/16/19 13:45 Active Vital Signs [RC] PER UNIT ROUTINE Care 06/16/19 13:44 Active Vital Signs [RC] Q4HR Care 06/16/19 16:43 Ordered Regular Diet [DIET] Diet 06/16/19 Dinner Active Famotidine [Pepcid] Med 06/16/19 21:00 Ordered 20 mg PO BEDTIME Insulin Glarg,Human.Rec.Analog [LantUS] Med 06/16/19 21:00 Ordered 38 unit SUBCUT BEDTIME Insulin Lispro [HumaLOG] Med 06/16/19 16:50 Once See Dose Instructions SUBCUT ONETIME ONE Levothyroxine [Synthroid] Med 06/17/19 06:00 Ordered 50 mcg PO ACBREAKFAST PIH Panel [OM.PC] Stat Oth 06/16/19 13:43 Ordered Peripheral IV Insertion Adult [OM.PC] Routine Oth 06/16/19 16:43 Ordered Resuscitation Status Routine Resus Stat 06/16/19 13:43 Ordered Medication Orders Famotidine (Pepcid) 20 mg PO BEDTIME ISAEL Insulin Glargine (Lantus) 38 unit SUBCUT BEDTIME ISAEL Insulin Human Lispro (Humalog) 0 unit SUBCUT ONETIME ONE Stop: 06/16/19 16:51 Levothyroxine Sodium (Synthroid) 50 mcg PO ACBREAKFAST [facility] Assessment/Plan Comment:: Patient admitted for further lab work and serial BP's. Serial BP's intermittently elevated c/w gestational HTN. Labs WNL. Reviewed need to move towards delivery as past 37 weeks. Currently there is a hold on beds in hospital. Reviewed we can transfer her to [place] vs keep her in house with NST, BP monitoring to start IOL tomorrow as long as stays stable with no severe features. Patient and family do not think they can coordinate delivery in [place]. Prefer observation in house and IOL tomorrow. Aware if still not able to start tomorrow we will be forced to transfer. They agree. Home medications ordered.
[2019-06-16] MEDS ORDERED: Insulin Lispro 100 Units/ML 3 ML Vial SUBCUT SCH (17:00)
[2019-06-16] MEDS ORDERED: Nalbuphine 10 MG/1 ML Vial IVPUSH PRN (19:25)
[2019-06-16] MEDS ORDERED: Ondansetron 4 MG/2 ML SDV IVPUSH PRN (19:25)
[2019-06-16] MEDS ORDERED: Lactated Ringers 1,000 ML IV SCH (19:30)
[2019-06-16] MEDS ORDERED: Oxytocin/Lactated Ringers 10 UNIT/1,000 ML BAG IV SCH ×2 (19:30)
[2019-06-16] MEDS ORDERED: Insulin Glarg,Human.Rec.Analog 100 UNIT/ML ML SUBCUT SCH (21:00)
[2019-06-16] MEDS ORDERED: Famotidine 20 MG Tab PO SCH (21:00)
[2019-06-16] MEDS ORDERED: fentaNYL 100 MCG/2 ML SDV EPIDUR PRN (21:36)
[2019-06-16] MEDS ORDERED: diphenhydrAMINE 50 MG/ML SDV IVPUSH PRN (21:36)
[2019-06-16] MEDS ORDERED: ePHEDrine 50 MG/ML SDV IVPUSH PRN (21:36)
[2019-06-16] MEDS ORDERED: fentaNYL/Bupivacaine/NS 2 MCG-0.125% 250 ML EPIDUR PRN (21:36)
--- NOTE | 2019-06-16 22:09 | PCM.PREANE ---
Preanesthetic Assessment - Anesthesia/Transfusion/Family Hx Anesthesia History: Prior Anesthesia Without Reaction Family History of Anesthesia Reaction: No Transfusion History: No Prior Transfusion(s) Intubation History: Unknown - Review of Systems General: Fatigue Pulmonary: No Symptoms Cardiovascular: No Symptoms Gastrointestinal: Abdominal Pain (labor) Neurological: No Symptoms Other: Reports: Diabetes - Physical Assessment Vital Signs: Last Vital Signs Temp 36.3 C 06/16/19 13:44 Pulse 62 06/16/19 13:44 Resp 16 06/16/19 13:44 BP 140/80 06/16/19 13:44 Pulse Ox 98 06/16/19 13:44 Height: 1.68 m Weight: 101.378 kg ASA Class: 2 Mental Status: Alert & Oriented x3 Airway Class: Mallampati = 2 Dentition: Reports: Normal Dentition Thyro-Mental Finger Breadths: 3 Mouth Opening Finger Breadths: 3 ROM/Head Extension: Full Lungs: Clear to Auscultation, Normal Respiratory Effort Cardiovascular: Regular Rate, Regular Rhythm - Lab Values: Laboratory Last Values WBC 7.12 K/mm3 (3.98-10.04) 06/16/19 12:15 RBC 4.55 M/mm3 (3.98-5.22) 06/16/19 12:15 Hgb 13.9 gm/dl (11.2-15.7) 06/16/19 12:15 Hct 39.6 % (34.1-44.9) 06/16/19 12:15 MCV 87.0 fl (79.4-94.8) 06/16/19 12:15 MCH 30.5 pg (25.6-32.2) 06/16/19 12:15 MCHC 35.1 g/dl (32.2-35.5) 06/16/19 12:15 RDW Std Deviation 50.1 fL (36.4-46.3) H 06/16/19 12:15 Plt Count 161 K/mm3 (182-369) L 06/16/19 12:15 MPV 11.9 fl (9.4-12.3) 06/16/19 12:15 Neut % (Auto) 72.5 % (34.0-71.1) H 06/16/19 12:15 Lymph % (Auto) 19.9 % (19.3-51.7) 06/16/19 12:15 [place] % (Auto) 6.9 % (4.7-12.5) 06/16/19 12:15 Eos % (Auto) 0.4 (0.7-5.8) L 06/16/19 12:15 Baso % (Auto) 0.3 % (0.1-1.2) 06/16/19 12:15 Neut # (Auto) 5.16 K/mm3 (1.56-6.13) 06/16/19 12:15 Lymph # (Auto) 1.42 K/mm3 (1.18-3.74) 06/16/19 12:15 [place] # (Auto) 0.49 K/mm3 (0.24-0.36) H 06/16/19 12:15 Eos # (Auto) 0.03 K/mm3 (0.04-0.36) L 06/16/19 12:15 Baso # (Auto) 0.02 K/mm3 (0.01-0.08) 06/16/19 12:15 BUN 19 mg/dL (7-18) H 06/16/19 13:56 Creatinine 1.0 mg/dL (0.55-1.02) 06/16/19 13:56 Est Cr Clr Drug Dosing 64.41 mL/min 06/16/19 13:56 Estimated GFR (MDRD) 59 mL/min (>60) 06/16/19 13:56 POC Glucose 104 mg/dL (70-105) 06/16/19 20:11 Uric Acid 6.5 mg/dL (2.6-6.0) H 06/16/19 13:56 AST 23 U/L (15-37) 06/16/19 13:56 ALT 24 U/L (14-59) 06/16/19 13:56 Lactate Dehydrogenase 281 U/L (81-234) H 06/16/19 13:56 Ur Random Creatinine 356.3 mg/dL (30.0-125.0) H 06/16/19 13:45 U Random Total Protein 44.9 mg/dL (0.0-11.8) H 06/16/19 13:45 Protein/Creatinin Ratio 126.0 mg/g (0-149) 06/16/19 13:45 Blood Type A POSITIVE 06/16/19 13:56 Gel Antibody Screen Negative 06/16/19 13:56 - Allergies Allergies/Adverse Reactions: Allergies Allergy/AdvReac Type Severity Reaction Status Date / Time ipratropium [From Atrovent] Allergy Other Verified 07/03/17 07:33 Sulfa (Sulfonamide Allergy Airway Verified 06/19/17 14:33 Antibiotics) Tightness - Anesthesia Plan Pre-Op Medication Ordered: None - Acknowledgements Anesthesia Type Planned: Epidural Pt an Appropriate Candidate for the Planned Anesthesia: Yes Alternatives and Risks of Anesthesia Discussed w Pt/Guardian: Yes Pt/Guardian Understands and Agrees with Anesthesia Plan: Yes PreAnesthesia Questionnaire - Past Health History Medical/Surgical History: Denies Medical/Surgical History Gastrointestinal History: Reports: GERD Genitourinary History: Reports: 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 Musculoskeletal History: Reports: Other (See Below) Other Musculoskeletal History: plantar fascitis Psychiatric History: Reports: Anxiety Endocrine/Metabolic History: Reports: Hypothyroidism - Past Surgical History Female Surgical History: Reports: Breast Implant, D&C, Kidney stone extraction, Other (See Below) - SUBSTANCE USE Smoking Status *Q: Never Smoker Second Hand Smoke Exposure: No Recreational Drug Use History: No - HOME MEDS Home Medications: Home Meds Levothyroxine [Synthroid] 50 mcg PO DAILY 02/28/15 [History] Aspirin 81 mg PO BRK 02/22/17 [History] Insulin Detemir [Levemir] 38 unit SUBCUT DAILY 06/16/19 [History] Insulin Lispro [HumaLOG] 10 unit SQ DAILY 06/16/19 [History] Insulin Lispro [HumaLOG] 12 unit SQ DAILY 06/16/19 [History] Insulin Lispro [Humalog] 20 units SQ DAILY 06/16/19 [History] 105/Iron/Folic AC/Dha [Prena1 True Combo Pack] 1 pack PO BID 06/16/19 [ History] - CURRENT (IN HOUSE) MEDS Current Meds: Current Medications Diphenhydramine HCl (Benadryl) 25 mg IVPUSH Q6H PRN PRN Reason: Itching Ephedrine Sulfate (Ephedrine Sulfate) 5 mg IVPUSH ASDIRECTED PRN PRN Reason: HYPOTENTSION Famotidine (Pepcid) 20 mg PO BEDTIME ISAEL Last Admin: 06/16/19 21:15 Dose: 20 mg Fentanyl (Sublimaze) 100 mcg EPIDUR Q3H PRN PRN Reason: Pain Last Admin: 06/16/19 22:03 Dose: 100 mcg Fentanyl/Bupivacaine HCl (Fentanyl/Bupivacaine/Ns 2 Mcg-0.125% 250 Ml) 0 ml EPIDUR CONTINUOUS PRN PRN Reason: Pain Lactated Ringer's (Ringers, Lactated) 1,000 mls @ 100 mls/hr IV ASDIRECTED [facility] Last Admin: 06/16/19 20:05 Dose: 100 mls/hr Oxytocin/Lactated Ringer's (Pitocin In Lr 10 Units/1,000 Ml) 10 unit in 1,000 mls @ 500 mls/hr IV .CONTINUOUS ISAEL Oxytocin/Lactated Ringer's (Pitocin In Lr 10 Units/1,000 Ml) 10 unit in 1,000 mls @ 12 mls/hr IV TITRATE ISAEL; Protocol Last Admin: 06/16/19 20:05 Dose: 2 munits/min, 12 mls/hr Insulin Glargine (Lantus) 38 unit SUBCUT BEDTIME [facility] Last Admin: 06/16/19 21:12 Dose: 38 units Insulin Human Lispro (Humalog) 10 unit SUBCUT DAILY@0700 [facility] Insulin Human Lispro (Humalog) 12 unit SUBCUT DAILY@1100 [facility] Insulin Human Lispro (Humalog) 20 unit SUBCUT DAILY@1700 [facility] Last Admin: 06/16/19 21:13 Dose: Not Given Levothyroxine Sodium (Synthroid) 50 mcg PO ACBREAKFAST [facility] Nalbuphine HCl (Nubain) 10 mg IVPUSH Q2H PRN PRN Reason: Pain Ondansetron HCl (Zofran) 4 mg IVPUSH Q4H PRN PRN Reason: Nausea/Vomiting
--- NOTE | 2019-06-16 23:26 | PCM.DEL ---
L & D Note - General Info Date of Service: 06/16/19 - Delivery Note Labor: Induced by ARM, Induced by Oxytocin Delivery Outcome: Livebirth Infant Delivery Method: Spontaneous Vaginal Delivery-Single Infant Delivery Mode: Spontaneous Presentation: Right Occiput Anterior (TWAN) Nuchal Cord: None Anesthesia Type: Epidural Amniotic Fluid Description: Clear Episiotomy Type: None Laceration: None Placenta: Intact, Spontaneous Cord: 3 Vessels Estimated Blood Loss: 100 [place]: Bulb Syringe, Stimulated, Warmed, Bowler Used, Warmer Used Delivery Comments (Free Text/Narrative):: Patient found to be complete and began pushing. With maternal pushing effort head delivered from TWAN presentation. No nuchal cord present. With gentle downward traction the shoulders and body delivered. placed on maternal abdomen. Cord clamped and cut. Cord blood obtained. Placenta allowed time to separate and expelled intact. Inspection of the perineum showed no lacerations. - General Info Date of Service: 06/17/19 - Patient Data Vitals - Most Recent: Last Vital Signs Temp 36.3 C 06/16/19 13:44 Pulse 62 06/16/19 13:44 Resp 16 06/16/19 13:44 BP 140/80 06/16/19 13:44 Pulse Ox 98 06/16/19 13:44 Weight - Most Recent: 101.378 kg - Problem List & Annotations (1) 38 weeks gestation of SNOMED Code(s): 47004073 Code(s): Z3A.38 - 38 WEEKS GESTATION OF Status: Acute Current Visit: Yes (2) AMA (advanced maternal age) multigravida 35+ SNOMED Code(s): 834711693 Code(s): O09.529 - SUPERVISION OF ELDERLY MULTIGRAVIDA, UNSPECIFIED TRIMESTER Status: Acute Current Visit: No (3) Gestational diabetes SNOMED Code(s): 46208577 Code(s): O24.419 - GESTATIONAL DIABETES MELLITUS IN , UNSP CONTROL Status: Acute Current Visit: No Qualifiers: Gestational diabetes mellitus control: insulin-controlled Trimester: third trimester Qualified Code(s): O24.414 - Gestational diabetes mellitus in , insulin controlled (4) Gestational hypertension SNOMED Code(s): 936335684 Code(s): O13.9 - GESTATIONAL HTN W/O SIGNIFICANT PROTEINURIA, UNSP TRIMESTER Status: Acute Current Visit: Yes Qualifiers: Trimester: third trimester Qualified Code(s): O13.3 - Gestational [ -induced] hypertension without significant proteinuria, third trimester (5) (normal spontaneous vaginal delivery) SNOMED Code(s): 34434207, 644219779 Code(s): O80 - ENCOUNTER FOR FULL-TERM UNCOMPLICATED DELIVERY Status: Acute Current Visit: No - Problem List Review Problem List Initiated/Reviewed/Updated: Yes - My Orders Last 24 Hours: My Active Orders 06/16/19 13:43 PIH Panel [OM.PC] Stat Resuscitation Status Routine 06/16/19 13:45 Up ad Sylvia [RC] ASDIRECTED 06/16/19 16:42 Patient Status [ADT] Routine 06/16/19 16:43 Activity as Tolerated [RC] PFP Notify Provider Vital Signs [RC] PRN Vital Signs [RC] Q4HR Peripheral IV Insertion Adult [OM.PC] Routine 06/16/19 16:44 Peripheral IV Care [RC] . DIRECTED 06/16/19 16:52 Blood Glucose Check, Bedside [RC] ASDIRECTED 06/16/19 17:00 Insulin Lispro [HumaLOG] 20 unit SUBCUT DAILY@1700 06/16/19 19:25 Nalbuphine [Nubain] 10 mg IVPUSH Q2H PRN Ondansetron [Zofran] 4 mg IVPUSH Q4H PRN 06/16/19 19:26 Communication Order [RC] ASDIRECTED Communication Order [RC] ASDIRECTED Communication Order [RC] ASDIRECTED Notify Provider [RC] ASDIRECTED Notify Provider [RC] PRN Electronic Heart Tones Ext w TOCO [WOMSER] Routine Electronic Heart Tones Internal [WOMSER] Per Unit Routine 06/16/19 19:28 Heart Tones [RC] ASDIRECTED 06/16/19 19:30 Lactated Ringers [Ringers, Lactated] 1,000 ml IV ASDIRECTED Oxytocin/Lactated Ringers [Pitocin in LR 10 Units/1,000 ML] 10 unit in 1,000 ml IV .CONTINUOUS Oxytocin/Lactated Ringers [Pitocin in LR 10 Units/1,000 ML] 10 unit in 1,000 ml IV TITRATE 06/16/19 21:00 Famotidine [Pepcid] 20 mg PO BEDTIME Insulin Glarg,Human.Rec.Analog [LantUS] 38 unit SUBCUT BEDTIME 06/16/19 Dinner Regular Diet [DIET] 06/17/19 06:00 Levothyroxine [Synthroid] 50 mcg PO ACBREAKFAST 06/17/19 07:00 Insulin Lispro [HumaLOG] 10 unit SUBCUT DAILY@0700 06/17/19 11:00 Insulin Lispro [HumaLOG] 12 unit SUBCUT DAILY@1100 - Assessment Assessment:: 49 y/o PPD#0 from - Plan Plan:: S/p * Routine cares * Encourage breast feeding * Monitor BP's closely after delivery * Can stop insulin. Continue blood sugar monitoring * Discharge in 2 days
[2019-06-16] MEDS ORDERED: Acetaminophen 325 MG Tab PO PRN (23:41)
[2019-06-17] MEDS ORDERED: Magnesium Sulfate/Water 4 GM in Premix Bag 1 BAG IV ONE (01:39)
[2019-06-17] MEDS: Ibuprofen 600 MG Tab PO PRN ×2 (01:48→13:54)
[2019-06-17] MEDS ORDERED: Magnesium Sulfate/Water 100 ML ONE (01:54)
[2019-06-17] MEDS ORDERED: Labetalol 100 MG Tab PO ONE (02:00)
[2019-06-17] MEDS: Magnesium Sulfate/Water 2 GM in Premix Bag 1 BAG IV ONE ×3 (02:02→02:23)
[2019-06-17] MEDS ORDERED: Lactated Ringers 1,000 ML IV SCH (02:15)
[2019-06-17] MEDS ORDERED: Magnesium Sulfate/Water 40 GM/1,000 ML BAG IV SCH (02:45)
[2019-06-17] MEDS ORDERED: Levothyroxine 50 MCG Tab PO SCH (06:00)
[2019-06-17] MEDS: Levothyroxine 50 MCG Tab PO SCH (06:09)
[2019-06-17] MEDS: Docusate Sodium 100 MG Cap PO PRN ×2 (06:09→20:39)
[2019-06-17] MEDS ORDERED: Insulin Lispro 100 Units/ML 3 ML Vial SUBCUT SCH ×2 (07:00→11:00)
--- NOTE | 2019-06-17 07:35 | PCM.PNPP ---
- General Info Date of Service: 06/17/19 Functional Status: Reports: Pain Controlled, Tolerating Diet, Ambulating, Urinating - Review of Systems General: Reports: No Symptoms Pulmonary: Reports: No Symptoms Cardiovascular: Reports: No Symptoms Gastrointestinal: Reports: No Symptoms Genitourinary: Reports: No Symptoms Musculoskeletal: Reports: No Symptoms Neurological: Reports: No Symptoms - Patient Data Vital Signs - Most Recent: Last Vital Signs Temp 36.4 C 06/17/19 04:28 Pulse 59 L 06/17/19 04:28 Resp 18 06/17/19 04:28 BP 125/62 06/17/19 04:28 Pulse Ox 95 06/17/19 04:28 Weight - Most Recent: 101.378 kg I&O - Last 24 Hours: Intake & Output 06/16/19 06/17/19 06/17/19 22:59 06:59 14:59 Intake Total 2500 Balance 2500 Lab Results - Last 24 Hours: Laboratory Results - last 24 hr 06/16/19 06/16/19 06/16/19 Range/Units 12:15 13:45 13:56 WBC 7.12 (3.98-10.04) K/mm3 RBC 4.55 (3.98-5.22) M/mm3 Hgb 13.9 (11.2-15.7) gm/dl Hct 39.6 (34.1-44.9) % MCV 87.0 (79.4-94.8) fl MCH 30.5 (25.6-32.2) pg MCHC 35.1 (32.2-35.5) g/dl RDW Std Deviation 50.1 H (36.4-46.3) fL Plt Count 161 L (182-369) K/mm3 MPV 11.9 (9.4-12.3) fl Neut % (Auto) 72.5 H (34.0-71.1) % Lymph % (Auto) 19.9 (19.3-51.7) % [place] % (Auto) 6.9 (4.7-12.5) % Eos % (Auto) 0.4 L (0.7-5.8) Baso % (Auto) 0.3 (0.1-1.2) % Neut # (Auto) 5.16 (1.56-6.13) K/mm3 Lymph # (Auto) 1.42 (1.18-3.74) K/mm3 [place] # (Auto) 0.49 H (0.24-0.36) K/mm3 Eos # (Auto) 0.03 L (0.04-0.36) K/mm3 Baso # (Auto) 0.02 (0.01-0.08) K/mm3 BUN 19 H (7-18) mg/dL Creatinine 1.0 (0.55-1.02) mg/dL Est Cr Clr Drug Dosing 64.41 mL/min Estimated GFR (MDRD) 59 (>60) mL/min POC Glucose (70-105) mg/dL Uric Acid 6.5 H (2.6-6.0) mg/dL AST 23 (15-37) U/L ALT 24 (14-59) U/L Lactate Dehydrogenase 281 H (81-234) U/L Ur Random Creatinine 356.3 H (30.0-125.0) mg/dL U Random Total Protein 44.9 H (0.0-11.8) mg/dL Protein/Creatinin Ratio 126.0 (0-149) mg/g Blood Type Gel Antibody Screen 06/16/19 06/16/19 06/16/19 Range/Units 13:56 14:10 20:11 WBC (3.98-10.04) K/mm3 RBC (3.98-5.22) M/mm3 Hgb (11.2-15.7) gm/dl Hct (34.1-44.9) % MCV (79.4-94.8) fl MCH (25.6-32.2) pg MCHC (32.2-35.5) g/dl RDW Std Deviation (36.4-46.3) fL Plt Count (182-369) K/mm3 MPV (9.4-12.3) fl Neut % (Auto) (34.0-71.1) % Lymph % (Auto) (19.3-51.7) % [place] % (Auto) (4.7-12.5) % Eos % (Auto) (0.7-5.8) Baso % (Auto) (0.1-1.2) % Neut # (Auto) (1.56-6.13) K/mm3 Lymph # (Auto) (1.18-3.74) K/mm3 [place] # (Auto) (0.24-0.36) K/mm3 Eos # (Auto) (0.04-0.36) K/mm3 Baso # (Auto) (0.01-0.08) K/mm3 BUN (7-18) mg/dL Creatinine (0.55-1.02) mg/dL Est Cr Clr Drug Dosing mL/min Estimated GFR (MDRD) (>60) mL/min POC Glucose 102 104 (70-105) mg/dL Uric Acid (2.6-6.0) mg/dL AST (15-37) U/L ALT (14-59) U/L Lactate Dehydrogenase (81-234) U/L Ur Random Creatinine (30.0-125.0) mg/dL U Random Total Protein (0.0-11.8) mg/dL Protein/Creatinin Ratio (0-149) mg/g Blood Type A POSITIVE Gel Antibody Screen Negative 06/16/19 06/17/19 Range/Units 22:24 06:13 WBC (3.98-10.04) K/mm3 RBC (3.98-5.22) M/mm3 Hgb (11.2-15.7) gm/dl Hct (34.1-44.9) % MCV (79.4-94.8) fl MCH (25.6-32.2) pg MCHC (32.2-35.5) g/dl RDW Std Deviation (36.4-46.3) fL Plt Count (182-369) K/mm3 MPV (9.4-12.3) fl Neut % (Auto) (34.0-71.1) % Lymph % (Auto) (19.3-51.7) % [place] % (Auto) (4.7-12.5) % Eos % (Auto) (0.7-5.8) Baso % (Auto) (0.1-1.2) % Neut # (Auto) (1.56-6.13) K/mm3 Lymph # (Auto) (1.18-3.74) K/mm3 [place] # (Auto) (0.24-0.36) K/mm3 Eos # (Auto) (0.04-0.36) K/mm3 Baso # (Auto) (0.01-0.08) K/mm3 BUN (7-18) mg/dL Creatinine (0.55-1.02) mg/dL Est Cr Clr Drug Dosing mL/min Estimated GFR (MDRD) (>60) mL/min POC Glucose 74 76 (70-105) mg/dL Uric Acid (2.6-6.0) mg/dL AST (15-37) U/L ALT (14-59) U/L Lactate Dehydrogenase (81-234) U/L Ur Random Creatinine (30.0-125.0) mg/dL U Random Total Protein (0.0-11.8) mg/dL Protein/Creatinin Ratio (0-149) mg/g Blood Type Gel Antibody Screen Med Orders - Current: Current Medications Acetaminophen (Tylenol) 650 mg PO Q4H PRN PRN Reason: mild pain or fever Docusate Sodium (Colace) 100 mg PO BID PRN PRN Reason: Constipation Last Admin: 06/17/19 06:09 Dose: 100 mg Lactated Ringer's (Ringers, Lactated) 1,000 mls @ 75 mls/hr IV ASDIRECTED [facility] Last Admin: 06/17/19 02:00 Dose: 75 mls/hr Magnesium Sulfate (Magnesium Sulfate In Water Premix) 40 gm in 1,000 mls @ 50 mls/hr IV ASDIRECTED [facility] Last Admin: 06/17/19 02:48 Dose: 50 mls/hr Ibuprofen (Motrin) 600 mg PO Q6H PRN PRN Reason: Mild pain or fever Last Admin: 06/17/19 01:48 Dose: 600 mg Levothyroxine Sodium (Synthroid) 50 mcg PO ACBREAKFAST [facility] Last Admin: 06/17/19 06:09 Dose: 50 mcg Discontinued Medications Diphenhydramine HCl (Benadryl) 25 mg IVPUSH Q6H PRN PRN Reason: Itching Ephedrine Sulfate (Ephedrine Sulfate) 5 mg IVPUSH ASDIRECTED PRN PRN Reason: HYPOTENTSION Famotidine (Pepcid) 20 mg PO BEDTIME [facility] Last Admin: 06/16/19 21:15 Dose: 20 mg Fentanyl (Sublimaze) 100 mcg EPIDUR Q3H PRN PRN Reason: Pain Last Admin: 06/16/19 22:03 Dose: 100 mcg Fentanyl/Bupivacaine HCl (Fentanyl/Bupivacaine/Ns 2 Mcg-0.125% 250 Ml) 0 ml EPIDUR CONTINUOUS PRN PRN Reason: Pain Lactated Ringer's (Ringers, Lactated) 1,000 mls @ 100 mls/hr IV ASDIRECTED [facility] Last Admin: 06/16/19 20:05 Dose: 100 mls/hr Oxytocin/Lactated Ringer's (Pitocin In Lr 10 Units/1,000 Ml) 10 unit in 1,000 mls @ 500 mls/hr IV .CONTINUOUS ISAEL Oxytocin/Lactated Ringer's (Pitocin In Lr 10 Units/1,000 Ml) 10 unit in 1,000 mls @ 12 mls/hr IV TITRATE ISAEL; Protocol Last Titration: 06/16/19 21:45 Dose: 6 munits/min, 36 mls/hr Magnesium Sulfate 2 gm/ Premix 50 mls @ 25 mls/hr IV ONETIME ONE Stop: 06/17/19 03:59 Last Admin: 06/17/19 02:23 Dose: 25 mls/hr Magnesium Sulfate 4 gm/ Premix 100 mls @ 300 mls/hr IV ONETIME ONE Stop: 06/17/19 01:40 Last Admin: 06/17/19 05:27 Dose: Not Given Magnesium Sulfate (Magnesium Sulfate In Water Premix) Confirm Administered Dose 100 mls @ as directed .ROUTE .STK-MED ONE Stop: 06/17/19 01:55 Last Admin: 06/17/19 05:27 Dose: Not Given Insulin Glargine (Lantus) 38 unit SUBCUT BEDTIME [facility] Last Admin: 06/16/19 21:12 Dose: 38 units Insulin Human Lispro (Humalog) 10 unit SUBCUT DAILY@0700 [facility] Insulin Human Lispro (Humalog) 12 unit SUBCUT DAILY@1100 [facility] Insulin Human Lispro (Humalog) 20 unit SUBCUT DAILY@1700 [facility] Last Admin: 06/16/19 21:13 Dose: Not Given Labetalol HCl (Normodyne) 200 mg PO ONETIME ONE Stop: 06/17/19 02:01 Last Admin: 06/17/19 01:48 Dose: 200 mg Levothyroxine Sodium (Synthroid) 50 mcg PO ACBREAKFAST [facility] Nalbuphine HCl (Nubain) 10 mg IVPUSH Q2H PRN PRN Reason: Pain Ondansetron HCl (Zofran) 4 mg IVPUSH Q4H PRN PRN Reason: Nausea/Vomiting - Infant Interaction Infant Disposition, : [place] in Room with Family Interaction: Holding Feeding: Attempted ; Nursed Fair/Poor Support Person: - Recovery Exam Fundal Tone: Firm Fundal Level: At Umbilicus Fundal Placement: Midline Lochia Amount: Small Lochia Color: Rubra/Red Episiotomy/Laceration: None Bladder Status: Voiding Urinary Elimination: Voided - Exam General: Alert, Oriented, Cooperative Lungs: Clear to Auscultation, Normal Respiratory Effort Cardiovascular: Regular Rate, Regular Rhythm GI/Abdominal Exam: Soft, Non-Tender Extremities: Normal Inspection Skin: Warm, Dry, Intact Neurological: Reflexes Equal Bilateral (+2) - Problem List & Annotations (1) 38 weeks gestation of SNOMED Code(s): 12082250 Code(s): Z3A.38 - 38 WEEKS GESTATION OF Status: Acute Current Visit: Yes (2) AMA (advanced maternal age) multigravida 35+ SNOMED Code(s): 531533403 Code(s): O09.529 - SUPERVISION OF ELDERLY MULTIGRAVIDA, UNSPECIFIED TRIMESTER Status: Acute Current Visit: No (3) Gestational diabetes SNOMED Code(s): 56653868 Code(s): O24.419 - GESTATIONAL DIABETES MELLITUS IN , UNSP CONTROL Status: Acute Current Visit: No Qualifiers: Gestational diabetes mellitus control: insulin-controlled Trimester: third trimester Qualified Code(s): O24.414 - Gestational diabetes mellitus in , insulin controlled (4) Gestational hypertension SNOMED Code(s): 543748358 Code(s): O13.9 - GESTATIONAL HTN W/O SIGNIFICANT PROTEINURIA, UNSP TRIMESTER Status: Acute Current Visit: Yes Qualifiers: Trimester: third trimester Qualified Code(s): O13.3 - Gestational [ -induced] hypertension without significant proteinuria, third trimester (5) (normal spontaneous vaginal delivery) SNOMED Code(s): 98454731, 229407321 Code(s): O80 - ENCOUNTER FOR FULL-TERM UNCOMPLICATED DELIVERY Status: Acute Current Visit: No - Problem List Review Problem List Initiated/Reviewed/Updated: Yes - My Orders Last 24 Hours: My Active Orders 06/16/19 13:43 Resuscitation Status Routine 06/16/19 16:43 Vital Signs [RC] Q4HR 06/16/19 16:52 Blood Glucose Check, Bedside [RC] ASDIRECTED 06/16/19 19:28 Heart Tones [RC] ASDIRECTED 06/16/19 23:41 Activity as Tolerated [RC] PER UNIT ROUTINE Vital Signs [RC] 09,15,21,03 Acetaminophen [Tylenol] 650 mg PO Q4H PRN Docusate Sodium [Colace] 100 mg PO BID PRN Ibuprofen [Motrin] 600 mg PO Q6H PRN Assess Lochia [WOMSER] Per Unit Routine Assess Uterine Involution [WOMSER] Per Unit Routine Breast Pump [WOMSER] Per Unit Routine Ice Therapy [OM.PC] Per Unit Routine Perineal Care [OM.PC] Per Unit Routine Peripheral IV Discontinue [OM.PC] Routine Sitz Bath [OM.PC] Per Unit Routine 06/16/19 23:45 Heat Therapy [OM.PC] PRN 06/16/19 Breakfast Regular Diet [DIET] 06/17/19 02:15 Lactated Ringers [Ringers, Lactated] 1,000 ml IV ASDIRECTED 06/17/19 02:45 Magnesium Sulfate/Water [Magnesium Sulfate in Water Premix] 40 gm in 1,000 ml IV ASDIRECTED 06/17/19 06:00 Levothyroxine [Synthroid] 50 mcg PO ACBREAKFAST 06/17/19 23:45 Heat Therapy [OM.PC] PRN - Assessment Assessment:: PPD#1 - Plan Plan:: * Routine cares * Breast feeding * BP after delivery elevated somewhat. Had few severe range BP's. Given labetalol and magnesium started. Will continue 24 hours. Will reassess need for additional anti-hypertensives as since have been normal * Fasting blood sugar this AM normal. Continue to monitor * Discharge home tomorrow
[2019-06-17] MEDS ORDERED: Labetalol 100 MG Tab PO SCH (08:30)
--- NOTE | 2019-06-17 09:02 | PCM48HPAN ---
Post Anesthesia Note - EVALUATION WITHIN 48HRS OF ANESTHETIC Vital Signs in Normal Range: Yes Patient Participated in Evaluation: Yes Respiratory Function Stable: Yes Airway Patent: Yes Cardiovascular Function Stable: Yes Hydration Status Stable: Yes Pain Control Satisfactory: Yes Nausea and Vomiting Control Satisfactory: Yes Mental Status Recovered: Yes Vital Signs: Last Vital Signs Temp 36.4 C 06/17/19 08:03 Pulse 62 06/17/19 08:43 Resp 16 06/17/19 08:03 BP 154/97 H 06/17/19 08:43 Pulse Ox 98 06/17/19 08:03 - COMMENTS/OBSERVATIONS Free Text/Narrative:: Mild discomfort in upper abdomen not requiring medication. No concerns at this time. Recovering as expected.
[2019-06-17] MEDS ORDERED: Sodium Chloride 0.65% Nasal Spray 45 ML Bottle NAS PRN (14:22)
[2019-06-17] MEDS ORDERED: Pseudoephedrine 30 MG Tab PO PRN (14:22)
--- NOTE | 2019-06-17 14:29 | PCM.SN ---
- Free Text/Narrative Note: 1415 Patient with complaints of headache. BP mild range. Exam benign. Reflexes + 2. Patient earlier this week also with complaint of congestion. Will try to manage congestion and give dose of tylenol. Continue to monitor BP's closely. Magnesium to be discontinued at 11:00. Tiffanie Martin MD
[2019-06-17] MEDS: Pseudoephedrine 30 MG Tab PO PRN ×2 (14:47→20:34)
[2019-06-17] MEDS: Labetalol 100 MG Tab PO SCH (16:40)
[2019-06-17] MEDS ORDERED: Pseudoephedrine 30 MG Tab PO ONE (20:24)
[2019-06-18] MEDS: Labetalol 100 MG Tab PO SCH ×2 (01:07→08:48)
[2019-06-18] MEDS: Levothyroxine 50 MCG Tab PO SCH (07:39)
--- NOTE | 2019-06-18 08:25 | PCM.DCSUM1 ---
Discharge Summary - Discharge Data Discharge Date: 06/18/19 Discharge Disposition: Home, Self-Care 01 Condition: Good - Referral to Home Health Primary Care Physician: Tiffanie Martin MD - Discharge Diagnosis/Problem(s) (1) 38 weeks gestation of SNOMED Code(s): 35405940 ICD Code: Z3A.38 - 38 WEEKS GESTATION OF Status: Acute Current Visit: Yes (2) AMA (advanced maternal age) multigravida 35+ SNOMED Code(s): 846707061 ICD Code: O09.529 - SUPERVISION OF ELDERLY MULTIGRAVIDA, UNSPECIFIED TRIMESTER Status: Acute Current Visit: No Qualifiers: Trimester: third trimester Qualified Code(s): O09.523 - Supervision of elderly multigravida, third trimester (3) Gestational diabetes SNOMED Code(s): 68285508 ICD Code: O24.419 - GESTATIONAL DIABETES MELLITUS IN , UNSP CONTROL Status: Acute Current Visit: No Qualifiers: Gestational diabetes mellitus control: insulin-controlled Trimester: third trimester Qualified Code(s): O24.414 - Gestational diabetes mellitus in , insulin controlled (4) Gestational hypertension SNOMED Code(s): 621020007 ICD Code: O13.9 - GESTATIONAL HTN W/O SIGNIFICANT PROTEINURIA, UNSP TRIMESTER Status: Acute Current Visit: Yes Qualifiers: Trimester: third trimester Qualified Code(s): O13.3 - Gestational [ -induced] hypertension without significant proteinuria, third trimester (5) (normal spontaneous vaginal delivery) SNOMED Code(s): 01819327, 934162183 ICD Code: O80 - ENCOUNTER FOR FULL-TERM UNCOMPLICATED DELIVERY Status: Acute Current Visit: No - Patient Summary/Data Complications: None Consults: None Recommended Follow-up Testing/Procedures: Follow up in 1 week for BP check Hospital Course: 49 y/o admitted at 38 5/7 wks for evaluation for elevated BP in clinic. Noted to have multiple mild range BP's and so kept for IOL. This was done with pitocin and AROM. She progressed rapidly to complete dilation and underwent an uncomplicated . had development of severe range BP' s and so was started on magnesium for 24 hours. Also started on Labetalol 200 mg TID. BP's remained mild range with this. Was eventually discharged home on PPD#2 - Patient Instructions Diet: Regular Diet as Tolerated Activity: As Tolerated Activity, Other: Pelvic rest for 6 weeks Driving: Do Not Drive Showering/Bathing: May Shower Showering/Bathing, Other: May Bathe Notify Provider of: Fever, Increased Pain, Swelling and Redness, Drainage, Nausea and/or Vomiting - Discharge Plan *PRESCRIPTION DRUG MONITORING PROGRAM REVIEWED*: No *COPY OF PRESCRIPTION DRUG MONITORING REPORT IN PATIENT EM: No Prescriptions/Med Rec: Labetalol [Normodyne] 200 mg PO Q8H 14 Days tablet Home Medications: Home Meds Levothyroxine [Synthroid] 50 mcg PO DAILY 02/28/15 [History] 105/Iron/Folic AC/Dha [Prena1 True Combo Pack] 1 pack PO BID 06/16/19 [ History] Acetaminophen [Tylenol] 650 mg PO Q4H PRN tablet 06/17/19 [Rx] Docusate Sodium [Colace] 100 mg PO BID PRN cap 06/17/19 [Rx] Ibuprofen [Motrin] 600 mg PO Q6H PRN tablet 06/17/19 [Rx] Labetalol [Normodyne] 200 mg PO Q8H 14 Days tablet 06/17/19 [Rx] Patient Handouts: Hypertension During , [id number], and Self-Care, [id number], Hypertension, Home Care Instructions for Mom Referrals: Tiffanie Martin MD [Primary Care Provider] - (1 week for BP check ) - Discharge Summary/Plan Comment DC Time >30 min.: No - Patient Data Vitals - Most Recent: Last Vital Signs Temp 36.3 C 06/18/19 04:05 Pulse 53 L 06/18/19 04:05 Resp 14 06/18/19 04:05 BP 148/72 H 06/18/19 04:05 Pulse Ox 97 06/18/19 04:05 Weight - Most Recent: 101.378 kg I&O - Last 24 hours: Intake & Output 06/17/19 06/18/19 06/18/19 22:59 06:59 14:59 Intake Total 360 1800 600 Output Total 1000 1600 300 Balance -640 200 300 Lab Results - Last 24 hrs: Laboratory Results - last 24 hr 06/18/19 Range/Units 07:38 POC Glucose 61 L (70-105) mg/dL Med Orders - Current: Current Medications Acetaminophen (Tylenol) 650 mg PO Q4H PRN PRN Reason: mild pain or fever Last Admin: 06/17/19 14:21 Dose: 650 mg Docusate Sodium (Colace) 100 mg PO BID PRN PRN Reason: Constipation Last Admin: 06/17/19 20:39 Dose: 100 mg Lactated Ringer's (Ringers, Lactated) 1,000 mls @ 75 mls/hr IV ASDIRECTED [facility] Last Infusion: 06/17/19 08:41 Dose: 25 mls/hr Magnesium Sulfate (Magnesium Sulfate In Water Premix) 40 gm in 1,000 mls @ 50 mls/hr IV ASDIRECTED [facility] Last Admin: 06/17/19 02:48 Dose: 50 mls/hr Ibuprofen (Motrin) 600 mg PO Q6H PRN PRN Reason: Mild pain or fever Last Admin: 06/17/19 13:54 Dose: 600 mg Labetalol HCl (Normodyne) 200 mg PO Q8H [facility] Last Admin: 06/18/19 01:07 Dose: 200 mg Levothyroxine Sodium (Synthroid) 50 mcg PO ACBREAKFAST [facility] Last Admin: 06/18/19 07:39 Dose: 50 mcg Pseudoephedrine HCl (Sudogest) 30 mg PO ONETIME PRN PRN Reason: Congestion Last Admin: 06/17/19 20:34 Dose: 30 mg Sodium Chloride ([place] Nasal [place]) 1 ml ROLO Q2H PRN PRN Reason: Congestion Last Admin: 06/17/19 14:47 Dose: 1 ml Discontinued Medications Bupivacaine HCl (Sensorcaine-Mpf 0.25%) 10 ml .ROUTE .ST-MED ONE Stop: 06/16/19 00:01 Diphenhydramine HCl (Benadryl) 25 mg IVPUSH Q6H PRN PRN Reason: Itching Ephedrine Sulfate (Ephedrine Sulfate) 5 mg IVPUSH ASDIRECTED PRN PRN Reason: HYPOTENTSION Famotidine (Pepcid) 20 mg PO BEDTIME [facility] Last Admin: 06/16/19 21:15 Dose: 20 mg Fentanyl (Sublimaze) 100 mcg EPIDUR Q3H PRN PRN Reason: Pain Last Admin: 06/16/19 22:03 Dose: 100 mcg Fentanyl/Bupivacaine HCl (Fentanyl/Bupivacaine/Ns 2 Mcg-0.125% 250 Ml) 0 ml EPIDUR CONTINUOUS PRN PRN Reason: Pain Lactated Ringer's (Ringers, Lactated) 1,000 mls @ 100 mls/hr IV ASDIRECTED [facility] Last Admin: 06/16/19 20:05 Dose: 100 mls/hr Oxytocin/Lactated Ringer's (Pitocin In Lr 10 Units/1,000 Ml) 10 unit in 1,000 mls @ 500 mls/hr IV .CONTINUOUS ISAEL Oxytocin/Lactated Ringer's (Pitocin In Lr 10 Units/1,000 Ml) 10 unit in 1,000 mls @ 12 mls/hr IV TITRATE ISAEL; Protocol Last Titration: 06/16/19 21:45 Dose: 6 munits/min, 36 mls/hr Magnesium Sulfate 2 gm/ Premix 50 mls @ 25 mls/hr IV ONETIME ONE Stop: 06/17/19 03:59 Last Admin: 06/17/19 02:23 Dose: 25 mls/hr Magnesium Sulfate 4 gm/ Premix 100 mls @ 300 mls/hr IV ONETIME ONE Stop: 06/17/19 01:40 Last Admin: 06/17/19 05:27 Dose: Not Given Magnesium Sulfate (Magnesium Sulfate In Water Premix) Confirm Administered Dose 100 mls @ as directed .ROUTE .STK-MED ONE Stop: 06/17/19 01:55 Last Admin: 06/17/19 05:27 Dose: Not Given Insulin Glargine (Lantus) 38 unit SUBCUT BEDTIME [facility] Last Admin: 06/16/19 21:12 Dose: 38 units Insulin Human Lispro (Humalog) 10 unit SUBCUT DAILY@0700 [facility] Insulin Human Lispro (Humalog) 12 unit SUBCUT DAILY@1100 [facility] Insulin Human Lispro (Humalog) 20 unit SUBCUT DAILY@1700 [facility] Last Admin: 06/16/19 21:13 Dose: Not Given Labetalol HCl (Normodyne) 200 mg PO ONETIME ONE Stop: 06/17/19 02:01 Last Admin: 06/17/19 01:48 Dose: 200 mg Labetalol HCl (Normodyne) 200 mg PO Q8HR [facility] Last Admin: 06/17/19 08:43 Dose: 200 mg Levothyroxine Sodium (Synthroid) 50 mcg PO ACBREAKFAST [facility] Nalbuphine HCl (Nubain) 10 mg IVPUSH Q2H PRN PRN Reason: Pain Ondansetron HCl (Zofran) 4 mg IVPUSH Q4H PRN PRN Reason: Nausea/Vomiting Pseudoephedrine HCl (Sudogest) 30 mg PO Q6H PRN PRN Reason: Congestion Pseudoephedrine HCl (Sudogest) 30 mg PO ONETIME ONE Stop: 06/17/19 20:25 Last Admin: 06/18/19 00:57 Dose: Not Given
--- NOTE | 2019-06-18 08:25 | PCM.PNPP ---
- General Info Date of Service: 06/18/19 Functional Status: Reports: Pain Controlled, Tolerating Diet, Ambulating, Urinating - Review of Systems General: Reports: No Symptoms HEENT: Reports: Sinus Congestion (improved from yesterday PM) Pulmonary: Reports: No Symptoms Cardiovascular: Reports: No Symptoms Gastrointestinal: Reports: No Symptoms Genitourinary: Reports: No Symptoms Musculoskeletal: Reports: No Symptoms - Patient Data Vital Signs - Most Recent: Last Vital Signs Temp 36.3 C 06/18/19 04:05 Pulse 53 L 06/18/19 04:05 Resp 14 06/18/19 04:05 BP 148/72 H 06/18/19 04:05 Pulse Ox 97 06/18/19 04:05 Weight - Most Recent: 101.378 kg I&O - Last 24 Hours: Intake & Output 06/17/19 06/18/19 06/18/19 22:59 06:59 14:59 Intake Total 360 1800 600 Output Total 1000 1600 300 Balance -640 200 300 Lab Results - Last 24 Hours: Laboratory Results - last 24 hr 06/18/19 Range/Units 07:38 POC Glucose 61 L (70-105) mg/dL Med Orders - Current: Current Medications Acetaminophen (Tylenol) 650 mg PO Q4H PRN PRN Reason: mild pain or fever Last Admin: 06/17/19 14:21 Dose: 650 mg Docusate Sodium (Colace) 100 mg PO BID PRN PRN Reason: Constipation Last Admin: 06/17/19 20:39 Dose: 100 mg Lactated Ringer's (Ringers, Lactated) 1,000 mls @ 75 mls/hr IV ASDIRECTED ISAEL Last Infusion: 06/17/19 08:41 Dose: 25 mls/hr Magnesium Sulfate (Magnesium Sulfate In Water Premix) 40 gm in 1,000 mls @ 50 mls/hr IV ASDIRECTED ISAEL Last Admin: 06/17/19 02:48 Dose: 50 mls/hr Ibuprofen (Motrin) 600 mg PO Q6H PRN PRN Reason: Mild pain or fever Last Admin: 06/17/19 13:54 Dose: 600 mg Labetalol HCl (Normodyne) 200 mg PO Q8H ISAEL Last Admin: 06/18/19 01:07 Dose: 200 mg Levothyroxine Sodium (Synthroid) 50 mcg PO ACBREAKFAST ISAEL Last Admin: 06/18/19 07:39 Dose: 50 mcg Pseudoephedrine HCl (Sudogest) 30 mg PO ONETIME PRN PRN Reason: Congestion Last Admin: 06/17/19 20:34 Dose: 30 mg Sodium Chloride ([place] Nasal [place]) 1 ml ROLO Q2H PRN PRN Reason: Congestion Last Admin: 06/17/19 14:47 Dose: 1 ml Discontinued Medications Bupivacaine HCl (Sensorcaine-Mpf 0.25%) 10 ml .ROUTE .STK-MED ONE Stop: 06/16/19 00:01 Diphenhydramine HCl (Benadryl) 25 mg IVPUSH Q6H PRN PRN Reason: Itching Ephedrine Sulfate (Ephedrine Sulfate) 5 mg IVPUSH ASDIRECTED PRN PRN Reason: HYPOTENTSION Famotidine (Pepcid) 20 mg PO BEDTIME ISAEL Last Admin: 06/16/19 21:15 Dose: 20 mg Fentanyl (Sublimaze) 100 mcg EPIDUR Q3H PRN PRN Reason: Pain Last Admin: 06/16/19 22:03 Dose: 100 mcg Fentanyl/Bupivacaine HCl (Fentanyl/Bupivacaine/Ns 2 Mcg-0.125% 250 Ml) 0 ml EPIDUR CONTINUOUS PRN PRN Reason: Pain Lactated Ringer's (Ringers, Lactated) 1,000 mls @ 100 mls/hr IV ASDIRECTED ISAEL Last Admin: 06/16/19 20:05 Dose: 100 mls/hr Oxytocin/Lactated Ringer's (Pitocin In Lr 10 Units/1,000 Ml) 10 unit in 1,000 mls @ 500 mls/hr IV .CONTINUOUS ISAEL Oxytocin/Lactated Ringer's (Pitocin In Lr 10 Units/1,000 Ml) 10 unit in 1,000 mls @ 12 mls/hr IV TITRATE ISAEL; Protocol Last Titration: 06/16/19 21:45 Dose: 6 munits/min, 36 mls/hr Magnesium Sulfate 2 gm/ Premix 50 mls @ 25 mls/hr IV ONETIME ONE Stop: 06/17/19 03:59 Last Admin: 06/17/19 02:23 Dose: 25 mls/hr Magnesium Sulfate 4 gm/ Premix 100 mls @ 300 mls/hr IV ONETIME ONE Stop: 06/17/19 01:40 Last Admin: 06/17/19 05:27 Dose: Not Given Magnesium Sulfate (Magnesium Sulfate In Water Premix) Confirm Administered Dose 100 mls @ as directed .ROUTE .STK-MED ONE Stop: 06/17/19 01:55 Last Admin: 06/17/19 05:27 Dose: Not Given Insulin Glargine (Lantus) 38 unit SUBCUT BEDTIME [facility] Last Admin: 06/16/19 21:12 Dose: 38 units Insulin Human Lispro (Humalog) 10 unit SUBCUT DAILY@0700 [facility] Insulin Human Lispro (Humalog) 12 unit SUBCUT DAILY@1100 [facility] Insulin Human Lispro (Humalog) 20 unit SUBCUT DAILY@1700 [facility] Last Admin: 06/16/19 21:13 Dose: Not Given Labetalol HCl (Normodyne) 200 mg PO ONETIME ONE Stop: 06/17/19 02:01 Last Admin: 06/17/19 01:48 Dose: 200 mg Labetalol HCl (Normodyne) 200 mg PO Q8HR [facility] Last Admin: 06/17/19 08:43 Dose: 200 mg Levothyroxine Sodium (Synthroid) 50 mcg PO ACBREAKFAST [facility] Nalbuphine HCl (Nubain) 10 mg IVPUSH Q2H PRN PRN Reason: Pain Ondansetron HCl (Zofran) 4 mg IVPUSH Q4H PRN PRN Reason: Nausea/Vomiting Pseudoephedrine HCl (Sudogest) 30 mg PO Q6H PRN PRN Reason: Congestion Pseudoephedrine HCl (Sudogest) 30 mg PO ONETIME ONE Stop: 06/17/19 20:25 Last Admin: 06/18/19 00:57 Dose: Not Given - Infant Interaction Infant Disposition, : [place] in Room with Family Interaction: Holding Feeding: Attempted ; Nursed Fair/Poor Support Person: - Recovery Exam Fundal Tone: Firm Fundal Level: At Umbilicus Fundal Placement: Midline Lochia Amount: Moderate Lochia Color: Rubra/Red Perineum Description: Intact, Minimal Bruising/Swelling Episiotomy/Laceration: None Bladder Status: Voiding Urinary Elimination: Voided - Exam General: Alert, Oriented, Cooperative GI/Abdominal Exam: Soft, Non-Tender Extremities: Normal Inspection Skin: Warm, Dry, Intact - Problem List & Annotations (1) 38 weeks gestation of SNOMED Code(s): 89316068 Code(s): Z3A.38 - 38 WEEKS GESTATION OF Status: Acute Current Visit: Yes (2) AMA (advanced maternal age) multigravida 35+ SNOMED Code(s): 331617430 Code(s): O09.529 - SUPERVISION OF ELDERLY MULTIGRAVIDA, UNSPECIFIED TRIMESTER Status: Acute Current Visit: No Qualifiers: Trimester: third trimester Qualified Code(s): O09.523 - Supervision of elderly multigravida, third trimester (3) Gestational diabetes SNOMED Code(s): 39187709 Code(s): O24.419 - GESTATIONAL DIABETES MELLITUS IN , UNSP CONTROL Status: Acute Current Visit: No Qualifiers: Gestational diabetes mellitus control: insulin-controlled Trimester: third trimester Qualified Code(s): O24.414 - Gestational diabetes mellitus in , insulin controlled (4) Gestational hypertension SNOMED Code(s): 952251591 Code(s): O13.9 - GESTATIONAL HTN W/O SIGNIFICANT PROTEINURIA, UNSP TRIMESTER Status: Acute Current Visit: Yes Qualifiers: Trimester: third trimester Qualified Code(s): O13.3 - Gestational [ -induced] hypertension without significant proteinuria, third trimester (5) (normal spontaneous vaginal delivery) SNOMED Code(s): 01009145, 535858779 Code(s): O80 - ENCOUNTER FOR FULL-TERM UNCOMPLICATED DELIVERY Status: Acute Current Visit: No - Problem List Review Problem List Initiated/Reviewed/Updated: Yes - My Orders Last 24 Hours: My Active Orders 06/17/19 14:22 Sodium Chloride 0.65% [[place] Nasal [place]] 1 ml ROLO Q2H PRN 06/17/19 14:25 Pseudoephedrine [Sudogest] 30 mg PO ONETIME PRN 06/17/19 16:45 Labetalol [Normodyne] 200 mg PO Q8H 06/17/19 23:45 Heat Therapy [OM.PC] PRN - Assessment Assessment:: PPD#2 - Plan Plan:: * Routine cares * Breast feeding * S/p 24 hours of magnesium. Also on labetalol 200 mg q 8 hours. BP's mild range. Will have patient follow up in clinic at end of upcoming week for BP check. * Blood sugars appropriate since delivery * Discharge home today
[2019-06-18] MEDS ORDERED: Pseudoephedrine 30 MG Tab PO ONE (08:56)
[2019-06-18 15:28] VITALS: BP 139/82; PULSE 55
== END 2019-06-18 16:50 | disposition home or self-care (01) | DRG 807 ==
LOC: JD.OBCHECK 13:29 → JD.OB 13:35 → JD.OBCHECK 16:43 → JD.MS 16:44 → JD.OB 19:00 → OBSVTOIN 22:59
PROVIDERS: ADMIT Obstetrics & Gynecology; ATTEND Obstetrics & Gynecology
PROC: 10E0XZZ Delivery of Products of Conception, External Approach (ICD-10-PCS; principal; 2019-06-16)
PROC: 10907ZC Drainage of Amniotic Fluid, Therapeutic from Products of Conception, Via Natural or Artificial Opening (ICD-10-PCS; 2019-06-16)
PROC: 3E033VJ Introduction of Other Hormone into Peripheral Vein, Percutaneous Approach (ICD-10-PCS; 2019-06-16)
DX: O24.424 Gestational diabetes mellitus in childbirth, insulin controlled (principal); Z37.0 Single live birth; O13.4 Gestational [pregnancy-induced] hypertension without significant proteinuria, complicating childbirth; O99.284 Endocrine, nutritional and metabolic diseases complicating childbirth; E03.9 Hypothyroidism, unspecified; Z3A.38 38 weeks gestation of pregnancy; Z79.890 Hormone replacement therapy; Z79.899 Other long term (current) drug therapy; Z88.2 Allergy status to sulfonamides; Z88.8 Allergy status to other drugs, medicaments and biological substances
CPT/HCPCS: 01967; 36415; 51702; 59025; 59409; 82565; 82570; 82962; 83615; 84156; 84450; 84460; 84520; 84550; 85025; 86850; 86900; 86901; A9270-GY; J1815-GY; J2590; J3010; J3475; J3490; J7120

== ENCOUNTER 2019-07-01 18:55 | Emergency (ER) | payer MEDICAID ==
[2019-07-01 19:07] VITALS: BP 127/67; PULSE 79
[2019-07-01] MEDS ORDERED: Sodium Chloride 0.9% 1,000 ML IV ONE (19:11)
[2019-07-01] MEDS ORDERED: Sodium Chloride 0.9% 10 ML Syringe FLUSH PRN (19:11)
--- NOTE | 2019-07-01 19:13 | EDM.PDOC ---
ED HPI GENERAL MEDICAL PROBLEM - General Chief Complaint: Genitourinary Problem Stated Complaint: UTI AT CLINIC YESTERDAY NOT GETTING BETTER Time Seen by Provider: 07/01/19 19:07 Source of Information: Reports: Patient History Limitations: Reports: No Limitations - History of Present Illness INITIAL COMMENTS - FREE TEXT/NARRATIVE: Patient's unfortunate 41-year-old female who presents emergency Department today with complaint of dysuria and left flank pain. Patient reports that she is status post vaginal delivery 2 weeks reports that at that time she had some dysuria which has progressively worsened she was seen in urgent care last night and prescribed Keflex but reports that her symptoms did not improve today so she presented emergency department for evaluation nausea no vomiting no diarrhea no chest pain or shortness of breath Lower Back Pain Score (Numeric/FACES): 2 - Related Data Allergies Allergy/AdvReac Type Severity Reaction Status Date / Time ipratropium [From Atrovent] Allergy Other Verified 07/03/17 07:33 Sulfa (Sulfonamide Allergy Airway Verified 06/19/17 14:33 Antibiotics) Tightness Home Meds: Home Meds Levothyroxine [Synthroid] 50 mcg PO DAILY 02/28/15 [History] Acetaminophen [Tylenol] 650 mg PO Q4H PRN tablet 06/17/19 [Rx] Ibuprofen [Motrin] 600 mg PO Q6H PRN tablet 06/17/19 [Rx] Labetalol [Normodyne] 200 mg PO Q8H 14 Days tablet 06/17/19 [Rx] Past Medical History - Past Health History Medical/Surgical History: Denies Medical/Surgical History Gastrointestinal History: Reports: GERD Genitourinary History: Reports: Renal Calculus [employer] History: Reports: Spontaneous Musculoskeletal History: Reports: Other (See Below) Other Musculoskeletal History: plantar fascitis Psychiatric History: Reports: Anxiety Endocrine/Metabolic History: Reports: Hypothyroidism - Past Surgical History Female Surgical History: Reports: Breast Implant, D&C, Kidney stone extraction, Other (See Below) Social & Family History - Family History Family Medical History: Noncontributory Cardiac: Reports: Hypertension Respiratory: Reports: COPD Psychiatric: Reports: ADHD, Anxiety Immunologic: Reports: HIV - Caffeine Use Caffeine Use: Reports: None - Living Situation & Occupation Living situation: Reports: , with Spouse, with Family (3 kids) Occupation: Unemployed ED ROS GENERAL - Review of Systems Review Of Systems: See Below Constitutional: Denies: Fever, Chills GI/Abdominal: Reports: Abdominal Pain. Denies: Nausea, Vomiting : Reports: Dysuria, Flank Pain ED EXAM, GI/ABD - Physical Exam Exam: See Below General Appearance: Alert, WD/WN, Mild Distress Throat/Mouth: Normal Inspection, Normal Lips, Normal Teeth, Normal Gums, Normal Oropharynx, Normal Voice, No Airway Compromise Neck: Normal Inspection, Supple, Non-Tender, Full Range of Motion Respiratory/Chest: No Respiratory Distress, Lungs Clear, Normal Breath Sounds, No Accessory Muscle Use, Chest Non-Tender Cardiovascular: Normal Peripheral Pulses, Regular Rate, Rhythm, No Edema, No Gallop, No JVD, No Murmur, No Rub GI/Abdominal Exam: Normal Bowel Sounds, Soft, Tender (mild suprapubic) Back Exam: Normal Inspection, Full Range of Motion (mild), CVA Tenderness (L) Neurological: Alert Skin Exam: Warm, Dry, No Rash Course - Vital Signs Last Recorded V/S: Last Vital Signs Temp 98.6 F 07/01/19 19:03 Pulse 79 07/01/19 19:03 Resp 16 07/01/19 19:03 BP 127/67 07/01/19 19:03 Pulse Ox 97 07/01/19 19:03 - Orders/Labs/Meds Orders: Active Orders 24 hr Category Date Time Status CULTURE URINE [RM] Stat Lab 07/01/19 20:08 Received Sodium Chloride 0.9% [Saline Flush] Med 07/01/19 19:11 Active 10 ml FLUSH ASDIRECTED PRN cefTRIAXone [Rocephin] 1 gm Med 07/01/19 20:46 Ordered Sodium Chloride 0.9% [Normal Saline] 100 ml IV ONETIME Saline Lock Insert [OM.PC] Stat Oth 07/01/19 19:11 Ordered Medication Orders Sodium Chloride (Saline Flush) 10 ml FLUSH ASDIRECTED PRN PRN Reason: Keep Vein Open Last Admin: 07/01/19 19:35 Dose: 10 ml Labs: Laboratory Tests 07/01/19 07/01/19 07/01/19 Range/Units 19:26 19:36 20:08 WBC 10.22 H (3.98-10.04) K/mm3 RBC 4.42 (3.98-5.22) M/mm3 Hgb 12.9 (11.2-15.7) gm/dl Hct 39.2 (34.1-44.9) % MCV 88.7 (79.4-94.8) fl MCH 29.2 (25.6-32.2) pg MCHC 32.9 (32.2-35.5) g/dl RDW Std Deviation 50.6 H (36.4-46.3) fL Plt Count 184 (182-369) K/mm3 MPV 10.3 (9.4-12.3) fl Neut % (Auto) 83.2 H (34.0-71.1) % Lymph % (Auto) 9.6 L (19.3-51.7) % [place] % (Auto) 6.7 (4.7-12.5) % Eos % (Auto) 0.2 L (0.7-5.8) Baso % (Auto) 0.1 (0.1-1.2) % Neut # (Auto) 8.51 H (1.56-6.13) K/mm3 Lymph # (Auto) 0.98 L (1.18-3.74) K/mm3 [place] # (Auto) 0.68 H (0.24-0.36) K/mm3 Eos # (Auto) 0.02 L (0.04-0.36) K/mm3 Baso # (Auto) 0.01 (0.01-0.08) K/mm3 Manual Slide Review Abnormal smear Sodium 138 (136-145) mEq/L Potassium 3.5 (3.5-5.1) mEq/L Chloride 104 (98-107) mEq/L Carbon Dioxide 20 L (21-32) mEq/L Anion Gap 17.5 H (5-15) BUN 19 H (7-18) mg/dL Creatinine 1.3 H (0.55-1.02) mg/dL Est Cr Clr Drug Dosing 49.54 mL/min Estimated GFR (MDRD) 44 (>60) mL/min BUN/Creatinine Ratio 14.6 (14-18) Glucose 245 H (74-106) mg/dL Calcium 9.1 (8.5-10.1) mg/dL Total Bilirubin 0.4 (0.2-1.0) mg/dL AST 25 (15-37) U/L ALT 31 (14-59) U/L Alkaline Phosphatase 103 (46-116) U/L Total Protein 7.1 (6.4-8.2) g/dl Albumin 3.1 L (3.4-5.0) g/dl Globulin 4.0 gm/dL Albumin/Globulin Ratio 0.8 L (1-2) Urine Color Yellow (Yellow) Urine Appearance Cloudy H (Clear) Urine pH 6.0 (5.0-8.0) Ur Specific [place] 1.025 (1.005-1.030) Urine Protein 2+ H (Negative) Urine Glucose (UA) Negative (Negative) Urine Ketones Trace H (Negative) Urine Occult Blood 3+ H (Negative) Urine Nitrite Negative (Negative) Urine Bilirubin Negative (Negative) Urine Urobilinogen 0.2 (0.2-1.0) Ur Leukocyte Esterase 2+ H (Negative) Urine RBC >100 H (0-5) /hpf Urine WBC 50-75 H (0-5) /hpf Ur Squamous Epith Cells 5-10 H (0-5) /hpf Urine Bacteria Many H (FEW) /hpf Urine Mucus Few (FEW) /hpf Meds: Medications Generic Name Dose Route Start Last Admin Trade Name Freq PRN Reason Stop Dose Admin Sodium Chloride 10 ml 07/01/19 19:11 07/01/19 19:35 Saline Flush FLUSH 10 ml ASDIRECTED PRN Administration Keep Vein Open Discontinued Medications Generic Name Dose Route Start Last Admin Trade Name Freq PRN Reason Stop Dose Admin Sodium Chloride 1,000 mls @ 1,000 mls/hr 07/01/19 19:11 07/01/19 19:35 Normal Saline IV 07/01/19 20:10 1,000 mls/hr ONETIME ONE Administration Departure - Departure Time of Disposition: 20:47 Disposition: Home, Self-Care 01 Clinical Impression: UTI, Urinary tract infectious disease - Discharge Information Referrals: Cassandra Myers PA-C [Primary Care Provider] - Forms: ED Department Discharge Additional Instructions: Home, rest, adequate fluids, Tylenol for pain or fever, return as needed for worsening condition Sepsis Event Note - Evaluation Sepsis Screening Result: No Definite Risk - Focused Exam Vital Signs: Vital Signs Temp Pulse Resp BP Pulse Ox 07/01/19 19:03 98.6 F 79 16 127/67 97 Date Exam was Performed: 07/01/19 Time Exam was Performed: 20:47 - My Orders Last 24 Hours: My Active Orders 07/01/19 19:11 Sodium Chloride 0.9% [Saline Flush] 10 ml FLUSH ASDIRECTED PRN Saline Lock Insert [OM.PC] Stat 07/01/19 20:08 CULTURE URINE [RM] Stat 07/01/19 20:46 cefTRIAXone [Rocephin] 1 gm Sodium Chloride 0.9% [Normal Saline] 100 ml IV ONETIME - Assessment/Plan Last 24 Hours: My Active Orders 07/01/19 19:11 Sodium Chloride 0.9% [Saline Flush] 10 ml FLUSH ASDIRECTED PRN Saline Lock Insert [OM.PC] Stat 07/01/19 20:08 CULTURE URINE [RM] Stat 07/01/19 20:46 cefTRIAXone [Rocephin] 1 gm Sodium Chloride 0.9% [Normal Saline] 100 ml IV ONETIME
[2019-07-01] MEDS ORDERED: cefTRIAXone 1 GM in Sodium Chloride 0.9% 100 ML IV ONE (20:46)
[2019-07-01] MEDS ORDERED: Ibuprofen 600 MG Tab PO ONE (20:49)
== END 2019-07-01 21:45 | disposition home or self-care (01) ==
LOC: JD.ED 18:55
DX: O86.20 Urinary tract infection following delivery, unspecified (principal); O99.285 Endocrine, nutritional and metabolic diseases complicating the puerperium; E03.9 Hypothyroidism, unspecified; Z88.8 Allergy status to other drugs, medicaments and biological substances; Z88.2 Allergy status to sulfonamides; Z79.899 Other long term (current) drug therapy
CPT/HCPCS: 36415; 80053; 81001; 85025; 87086; 87088; 87186; 96361; 96365; 99284; A9270; J0696; J7030; J7050; 99283

== ENCOUNTER 2021-08-18 11:01 | Emergency (ER) | payer MEDICAID, OTHER, SELFPAY ==
[2021-08-18 11:13] VITALS: BP 157/96; PULSE 62
[2021-08-18] MEDS ORDERED: LORazepam 1 MG Tab PO ONE (11:41)
== END 2021-08-18 12:55 | disposition home or self-care (01) ==
LOC: JD.ED 11:01
DX: F32.A Depression, unspecified (principal); F41.9 Anxiety disorder, unspecified; Z88.2 Allergy status to sulfonamides; Z88.8 Allergy status to other drugs, medicaments and biological substances
CPT/HCPCS: 99283; A9270; 99284

== ENCOUNTER 2021-08-30 09:18 | Emergency (ER) | payer MEDICAID, OTHER, SELFPAY ==
[2021-08-30 09:32] VITALS: BP 184/97; PULSE 68
[2021-08-30] MEDS ORDERED: Ondansetron 4 MG/2 ML SDV IVPUSH ONE (10:09)
[2021-08-30] MEDS ORDERED: LORazepam 2 MG/ML SDV IVPUSH ONE (10:10)
[2021-08-30] MEDS ORDERED: Dextrose 5%-0.9% NaCl 1,000 ML IV SCH (10:15)
== END 2021-08-30 12:49 | disposition home or self-care (01) ==
LOC: JD.ED 09:18
DX: F32.A Depression, unspecified (principal); T50.905A Adverse effect of unspecified drugs, medicaments and biological substances, initial encounter; F41.9 Anxiety disorder, unspecified; E03.9 Hypothyroidism, unspecified; R89.1 Abnormal level of hormones in specimens from other organs, systems and tissues; Z88.2 Allergy status to sulfonamides; Z88.8 Allergy status to other drugs, medicaments and biological substances
CPT/HCPCS: 36415; 80053; 80143; 80179; 80306; 80307; 82670; 82679; 84144; 84443; 84702; 85025; 93005; 96374; 96375; 99284; J2060; J2405; J7042; 93010

== ENCOUNTER 2024-07-12 11:55 | Emergency (ER) | payer MEDICAID, SELFPAY ==
[2024-07-12 12:29] VITALS: PULSE 53
[2024-07-12] MEDS: LORazepam 2 MG/ML SDV IV ONE (12:52)
[2024-07-12] MEDS: Aspirin 81 MG Tab.Chew PO ONE (12:52)
[2024-07-12 13:07] LABS: BASOPHILS PERCENT AUTO 0.4 % (0.0-1.0); EOSINOPHILS PERCENT AUTO 0.5 % (0.0-6.0); HEMATOCRIT 41.7 % (37.0-47.0); HEMOGLOBIN 13.9 gm/dl (12.0-16.0); IMMATURE GRAN ABSOLUTE AUTO 0.07 K/mm3 (0.00-0.05); IMMATURE GRAN PERCENT AUTO 0.8 % (0.0-0.4); LYMPHOCYTES ABSOLUTE AUTO 2.2 K/mm3 (1.0-4.8); LYMPHOCYTES PERCENT AUTO 26.2 % (24.0-44.0); MEAN CORPUSCULAR HEMOGLOBIN 29.3 pg (28.0-32.0); MEAN CORPUSCULAR HGB CONC 33.3 g/dl (32.0-36.0); MEAN CORPUSCULAR VOLUME 87.8 fl (83.0-99.0); MEAN PLATELET VOLUME 9.7 fl (9.4-12.3); MONOCYTES ABSOLUTE AUTO 0.6 K/mm3 (0.0-0.8); NEUTROPHILS ABSOLUTE AUTO 5.4 K/mm3 (1.8-7.7); NEUTROPHILS PERCENT AUTO 65.1 % (41.0-71.0); PLATELET COUNT,PLT 225 K/mm3 (150-400); RED BLOOD CELL COUNT 4.75 M/mm3 (4.10-5.30); WHITE BLOOD CELL COUNT,WBC 8.29 K/mm3 (3.9-11.3)
[2024-07-12 13:39] LABS: ALANINE AMINOTRANSFERASE,ALT 44 U/L (14-59); ALBUMIN 3.5 g/dl (3.4-5.0); ALKALINE PHOSPHATASE 71 U/L (46-116); ANION GAP 14.6 (5-15); ASPARTATE AMNIOTRANSFERASE,AST 18 U/L (15-37); BILIRUBIN TOTAL 0.5 mg/dL (0.2-1.0); BLOOD UREA NITROGEN,BUN 18 mg/dL (7-18); C-REACTIVE PROTEIN 0.13 mg/dL (<0.30); CALCIUM 8.8 mg/dL (8.5-10.1); CARBON DIOXIDE,CO2 24 mEq/L (21-32); CHLORIDE,CL 103 mEq/L (98-107); CREATININE 0.9 mg/dL (0.55-1.02); EST CRCL DRUG DOSING (CG) 67.67 mL/min; ESTIMATED GFR 76 mL/min (>60); GLUCOSE RANDOM 88 mg/dL (70-99); POTASSIUM,K 3.6 mEq/L (3.5-5.1); SODIUM,NA 138 mEq/L (136-145); TROPONIN I HIGH SENSITIVITY < 4 pg/mL (<=51)
[2024-07-12] MEDS: Aluminum Hydroxide/Magnesium Hydroxide/Simethicone Susp 30 ML Cup PO ONE (14:18)
[2024-07-12 19:46] VITALS: BP 133/78
== END 2024-07-12 16:06 | disposition home or self-care (01) ==
LOC: JD.ED 11:55
DX: F41.9 Anxiety disorder, unspecified (principal); E03.9 Hypothyroidism, unspecified; Z86.16 Personal history of COVID-19; Z88.2 Allergy status to sulfonamides; Z88.8 Allergy status to other drugs, medicaments and biological substances; Z79.890 Hormone replacement therapy; Z79.899 Other long term (current) drug therapy
CPT/HCPCS: 36415; 71045; 80053; 83735; 84484; 85025; 85379; 86140; 93005; 93246; 96374; 99285; A9270; J2060

== ENCOUNTER 2024-08-01 08:20 | Emergency (ER) | payer MEDICAID ==
[2024-08-01 08:41] VITALS: PULSE 61
[2024-08-01 09:28] LABS: BASOPHILS PERCENT AUTO 0.2 % (0.0-1.0); EOSINOPHILS PERCENT AUTO 0.9 % (0.0-6.0); HEMATOCRIT 43.7 % (37.0-47.0); HEMOGLOBIN 14.1 gm/dl (12.0-16.0); IMMATURE GRAN ABSOLUTE AUTO 0.02 K/mm3 (0.00-0.05); IMMATURE GRAN PERCENT AUTO 0.4 % (0.0-0.4); LYMPHOCYTES ABSOLUTE AUTO 1.9 K/mm3 (1.0-4.8); LYMPHOCYTES PERCENT AUTO 42.7 % (24.0-44.0); MEAN CORPUSCULAR HGB CONC 32.3 g/dl (32.0-36.0); MEAN CORPUSCULAR VOLUME 89.9 fl (83.0-99.0); MEAN PLATELET VOLUME 9.7 fl (9.4-12.3); MONOCYTES ABSOLUTE AUTO 0.3 K/mm3 (0.0-0.8); MONOCYTES PERCENT AUTO 7.3 % (0.0-8.0); NEUTROPHILS ABSOLUTE AUTO 2.2 K/mm3 (1.8-7.7); NEUTROPHILS PERCENT AUTO 48.5 % (41.0-71.0); PLATELET COUNT,PLT 197 K/mm3 (150-400); RED BLOOD CELL COUNT 4.86 M/mm3 (4.10-5.30); WHITE BLOOD CELL COUNT,WBC 4.52 K/mm3 (3.9-11.3)
[2024-08-01 09:59] LABS: LACTIC ACID 0.7 mmol/L (0.4-2.0)
[2024-08-01 10:00] LABS: APPEARANCE,URINE CLOUDY (Clear); BILIRUBIN,URINE NEGATIVE (Negative); COLOR,URINE YELLOW (Yellow); GLUCOSE,URINE NEGATIVE (Negative); KETONES,URINE NEGATIVE (Negative); LEUKOCYTE ESTERASE,URINE 2+ (Negative); NITRITE,URINE NEGATIVE (Negative); OCCULT BLOOD,URINE 3+ (Negative); PROTEIN,URINE TRACE (Negative); UROBILINOGEN,URINE 0.2 (0.2-1.0)
[2024-08-01 10:02] LABS: A/G RATIO 0.9 (1-2); ALBUMIN 3.4 g/dl (3.4-5.0); ANION GAP 13.9 (5-15); BILIRUBIN TOTAL 0.4 mg/dL (0.2-1.0); BUN/CREATININE RATIO 17.8 (14-18); C-REACTIVE PROTEIN 0.41 mg/dL (<0.30); CALCIUM 8.5 mg/dL (8.5-10.1); CREATININE 0.9 mg/dL (0.55-1.02); EST CRCL DRUG DOSING (CG) 67.67 mL/min; POTASSIUM,K 3.9 mEq/L (3.5-5.1); PROTEIN TOTAL,TP 7.1 g/dl (6.4-8.2)
[2024-08-01 10:27] LABS: BACTERIA,URINE MODERATE /hpf (FEW); SQUAMOUS EPITHELIAL CELLS,UR 0-5 /hpf (0-5)
[2024-08-01 10:28] LABS: MUCUS,URINE FEW /hpf (FEW)
[2024-08-01] MEDS: cefTRIAXone 2 GM, Lidocaine 1% 4.2 ML IM ONE (11:20)
[2024-08-01 11:53] VITALS: BP 135/86
== END 2024-08-01 11:23 | disposition home or self-care (01) ==
LOC: JD.ED 08:20
DX: N30.01 Acute cystitis with hematuria (principal); Z88.2 Allergy status to sulfonamides; Z88.8 Allergy status to other drugs, medicaments and biological substances; Z79.890 Hormone replacement therapy; Z79.899 Other long term (current) drug therapy
CPT/HCPCS: 36415; 80053; 81001; 83605; 85025; 86140; 87086; 96372; 99283; J0696; 87088; 87186; J3490